=== PATIENT | female | born 1990 | race African-American/Black ===

== ENCOUNTER 2016-05-13 07:37 | Emergency (ER) | payer OTHER, MEDICAID ==
[~2016-05-13] VITALS: Ht 175.3 cm; Wt 60.0 kg
[~2016-05-13 07:37] MED LIST: DOXY100T PO; IRON18TA PO; NAPR550 PO; PREN0.01 PO; SENN1TAB11 PO
[2016-05-13 07:39] VITALS: BP 137/83; PULSE 89; RESP 14; TEMP 98.3; O2SAT 100
--- NOTE | 2016-05-13 08:19 | PD ---
HPI Chief Complaint: Cold / Flu Symptoms Time Seen by Provider: 08:16 Travel History International Travel<30 days: No Contact w/Intl Traveler<30days: No Traveled to known affect area: No History of Present Illness HPI 25-year-old female presents to the emergency department for evaluation of cold symptoms since Thursday. Patient states symptoms are improving, but she needs a note for work. She reports itchy throat, losing her voice, body aches on Thursday that have resolved, cough. She denies any abdominal pain. No nausea, vomiting, diarrhea. She reports no chronic medical problems and taking no prescribed medications. She denies any fevers or chills. She does not use tobacco products. Patient denies any chance of . She denies any other complaints at this time. PFSH Past Medical History ?: Not : 0 Social History Alcohol Use: No Tobacco Use: No Substance Use: No Allergies-Medications (Allergen,Severity, Reaction): Coded Allergies: No Known Allergies (Verified , 06/19/09) Reported Meds & Prescriptions Reported Meds & Active Scripts Active Doxycycline Hyclate 100 Mg Tab 100 Mg PO BID Reported Balbina-Colace (Senna/Docusate Sodium) 1 Tab Tab 2 Tab PO HS Anaprox Ds (Naproxen Sodium) 550 Mg Tab 550 Mg PO BID Ferrous Sulfate 18 Mg Tab 0 PO UNKNOWN DOSE Vit ( Plus) (Prenat Multivit/Smyth/Iron/Folic Ac) Tab 1 Tab PO DAILY Review of Systems Except as stated in HPI: all other systems reviewed are Neg Physical Exam Narrative GENERAL: Well-developed well-nourished female patient, ambulatory. Afebrile. Vital signs are stable. SKIN: Warm and dry. HEAD: Normocephalic. Atraumatic. ENT: Mucosa pink and moist. No erythema or exudates. No uvular edema. No uvular , palatal, or tonsillar deviation. Airway patent. Nasal turbinates appear normal without nasal blood, purulent drainage or septal hematoma. Bilateral tympanic membranes are clear without erythema or perforation. EYES: No scleral icterus. No injection or drainage. NECK: Supple, trachea midline. No JVD or lymphadenopathy. CARDIOVASCULAR: Regular rate and rhythm without murmurs, gallops, or rubs. RESPIRATORY: Breath sounds equal bilaterally. No accessory muscle use. Lungs sounds are clear to auscultation throughout. Dry cough noted. GASTROINTESTINAL: Abdomen soft, non-tender, nondistended. MUSCULOSKELETAL: No cyanosis, or edema. BACK: Nontender without obvious deformity. No CVA tenderness. Data Data Last Documented VS Vital Signs Date Time Temp Pulse Resp B/P Pulse Ox O2 Delivery O2 Flow Rate FiO2 05/13/16 07:39 98.3 89 14 137/83 100 MDM Medical Decision Making Medical Screen Exam Complete: Yes Emergency Medical Condition: No Medical Record Reviewed: Yes Differential Diagnosis Viral URI versus bronchitis versus sinusitis Narrative Course 25-year-old female presents to the emergency department for evaluation of cold symptoms since Thursday, 4 days. Patient appears well and physical exam and states her symptoms are improving, but is requesting a note for work. No emergent condition is identified on today's exam. She is instructed on emergent conditions that she should return immediately for. She verbalizes agreement. A medical screening exam was performed: At the time of evaluation the presenting medical condition was determined not to be of an emergent nature. The patient was given the option of receiving additional care but opted to stay. Patient will be given a note for work as requested. She is to return for any acute worsening of symptoms. She verbalizes agreement and understanding. Diagnosis Primary Impression: Viral upper respiratory tract infection with cough Referrals: Primary Care Physician call for appointment Patient Instructions: General Instructions, Upper Respiratory Infection (ED) Departure Forms: Tests/Procedures, Work Release Enter return to work date: May 14, 2016 Additional Instructions: Rest. Drink plenty of fluids. [id number] Tylenol/ibuprofen as needed. Follow-up with your primary care physician. Return to the emergency department for any acute worsening of symptoms. Med/Other Pt SpecificInfo: No Change to Meds Disposition: 01 DISCHARGE HOME Condition: Stable Regine Griggs May 13, 2016 08:19
== END 2016-05-13 09:08 | disposition home or self-care (01) ==
LOC: NEPB 07:37
DX: J06.9 Acute upper respiratory infection, unspecified (principal)
CPT/HCPCS: 99282

== ENCOUNTER 2016-07-02 21:55 | Emergency (ER) | payer OTHER, MEDICAID ==
[~2016-07-02] VITALS: Ht 175.3 cm; Wt 59.0 kg
[2016-07-02 21:57] VITALS: BP 109/55; PULSE 96; RESP 20; TEMP 99.8; O2SAT 100
[2016-07-02 23:19] VITALS: BP 115/56; PULSE 85; RESP 18; O2SAT 100
--- NOTE | 2016-07-02 23:29 | PD ---
HPI Chief Complaint: Cold / Flu Symptoms Time Seen by Provider: 23:28 Travel History International Travel<30 days: No Contact w/Intl Traveler<30days: No Traveled to known affect area: No History of Present Illness HPI 25-year-old female came to the emergency room with history of vomiting and nausea that started 3 hours ago. Patient says she's been feeling very sick and body aches due to it. She appeared to be in distress. She had her son with her who breast-feeds. Patient was afebrile in the emergency room. No history of diarrhea. Patient says that she vomited about 3-4 times so far. The last vomit was 1 hour ago. She is otherwise a healthy person. [facility] Past Medical History Narrative Medical List of her past medical, surgical, social and family history was reviewed from the nursing note. Anemia: Yes Diminished Hearing: No Tetanus Vaccination: > 5 Years Influenza Vaccination: No ?: Unknown LMP: 06/11/16 : 0 Past Surgical History Section: Yes Social History Alcohol Use: No Tobacco Use: No Substance Use: No Allergies-Medications (Allergen,Severity, Reaction): Coded Allergies: No Known Allergies (Verified , 07/03/16) Comments No known drug allergies. Reported Meds & Prescriptions Reported Meds & Active Scripts Active Ibuprofen 600 Mg Tab 600 Mg PO Q6H PRN Percocet (Oxycodone-Acetaminophen) 5-325 mg Tab 1 Tab PO Q6H PRN Zofran Odt (Ondansetron Odt) 4 Mg Tab 4 Mg SL Q6HR PRN Narrative Medication List of her home medications reviewed from the nursing note. Review of Systems Except as stated in HPI: all other systems reviewed are Neg Physical Exam Narrative GENERAL: Awake, alert, moderate to significant distress SKIN: Focused skin assessment warm/dry. HEAD: Atraumatic. Normocephalic. EYES: Pupils equal and round. No scleral icterus. No injection or drainage. ENT: No nasal bleeding or discharge. Dry mucous membrane NECK: Trachea midline. No JVD. CARDIOVASCULAR: Regular rate and rhythm. No murmur appreciated. RESPIRATORY: No accessory muscle use. Clear to auscultation. Breath sounds equal bilaterally. GASTROINTESTINAL: Abdomen soft, non-tender, nondistended. Hepatic and splenic margins not palpable. MUSCULOSKELETAL: No obvious deformities. No clubbing. No cyanosis. No edema. NEUROLOGICAL: Awake and alert. No obvious cranial nerve deficits. Motor grossly within normal limits. Normal speech. PSYCHIATRIC: Appropriate mood and affect; insight and judgment normal. Data Data Last Documented VS Vital Signs Date Time Temp Pulse Resp B/P Pulse Ox O2 Delivery O2 Flow Rate FiO2 07/02/16 23:19 85 18 115/56 100 Room Air 07/02/16 21:57 99.8 Orders Complete Blood Count With Diff (07/02/16 23:31) Basic Metabolic Panel (Bmp) (07/02/16 23:31) Urinalysis - C+S If Indicated (07/02/16 23:31) Influenzae A/B Antigen (07/02/16 23:31) Blood Culture (07/02/16 23:31) Sodium Chlor 0.9% 1000 Ml Inj (Ns 1000 M (07/02/16 23:45) Acetaminophen (Tylenol) (07/02/16 23:45) Ondansetron Inj (Zofran Inj) (07/02/16 23:45) Ed Urine Pregnancytest Poc (07/02/16 23:31) Sodium Chlor 0.9% 1000 Ml Inj (Ns 1000 M (07/03/16 00:30) Chest, Single Ap (07/03/16 ) Ct Abd/Pel W Iv Contrast(Rout) (07/03/16 ) Iohexol 350 Inj (Omnipaque 350 Inj) (07/03/16 01:24) Mandatory Outpatient Referral (07/03/16 01:48) Labs Laboratory Tests Test 07/02/16 07/02/16 23:40 23:45 Urine Color YELLOW Urine Turbidity CLEAR Urine pH 8.0 Urine Specific Bland 1.027 Urine Protein 30 mg/dL Urine Glucose (UA) NEG mg/dL Urine Ketones 40 mg/dL Urine Occult Blood NEG Urine Nitrite NEG Urine Bilirubin NEG Urine Urobilinogen 4.0 MG/DL Urine Leukocyte Esterase NEG Urine RBC 1 /hpf Urine WBC 2 /hpf Urine Squamous Epithelial 2 /hpf Cells Urine Mucus FEW /lpf Microscopic Urinalysis Comment CULT NOT INDICATED White Blood Count 13.9 TH/MM3 Red Blood Count 4.46 MIL/MM3 Hemoglobin 12.3 GM/DL Hematocrit 37.2 % Mean Corpuscular Volume 83.2 FL Mean Corpuscular Hemoglobin 27.5 PG Mean Corpuscular Hemoglobin 33.1 % Concent Red Cell Distribution Width 13.7 % Platelet Count 249 TH/MM3 Mean Platelet Volume 9.3 FL Neutrophils (%) (Auto) 87.2 % Lymphocytes (%) (Auto) 5.2 % Monocytes (%) (Auto) 7.3 % Eosinophils (%) (Auto) 0.1 % Basophils (%) (Auto) 0.2 % Neutrophils # (Auto) 12.1 TH/MM3 Lymphocytes # (Auto) 0.7 TH/MM3 Monocytes # (Auto) 1.0 TH/MM3 Eosinophils # (Auto) 0.0 TH/MM3 Basophils # (Auto) 0.0 TH/MM3 CBC Comment AUTO DIFF Differential Comment AUTO DIFF CONFIRMED Sodium Level 140 MEQ/L Potassium Level 3.5 MEQ/L Chloride Level 104 MEQ/L Carbon Dioxide Level 28.1 MEQ/L Anion Gap 8 MEQ/L Blood Urea Nitrogen 10 MG/DL Creatinine 0.91 MG/DL Estimat Glomerular Filtration 90 ML/MIN Rate Random Glucose 114 MG/DL Calcium Level 8.9 MG/DL MDM Medical Decision Making Medical Screen Exam Complete: Yes Emergency Medical Condition: Yes Medical Record Reviewed: Yes Differential Diagnosis UTI, influenza, viral illness, pneumonia Narrative Course 1:29 AM blood test results of back and patient has some leukocytosis. I gave her -2 liters of fluid bolus because urine was positive for ketones. Chest x- ray was negative and influenza was negative. I went back to reassess her and she says she was feeling little better. I palpated her abdomen again this time and patient has right lower quadrant tenderness. I have ordered a CT scan of her abdomen to rule out appendicitis. My suspicion is somewhat high at this point for appendicitis since I have not found any other source of her symptoms. Awaiting for the CAT scan to be done and resulted. 1:[address] scan report is back and shows a large right simple ovarian cyst. Appendix was documented as unremarkable. Based on this and comfortable discharging her home. I have ordered a mandatory referral with SPECIAL SYSTEMS TECHNICIAN for for her which can be done as an outpatient. Procedures EKG Prior to Arrival: No Diagnosis Primary Impression: Viral illness Additional Impressions: Dehydration Vomiting Qualified Code: R11.2 - Non-intractable vomiting with nausea, unspecified vomiting type Ovarian cyst Qualified Code: N83.201 - Cyst of right ovary Referrals: Leatha Ambrocio MD 2 days Additional Instructions: The CAT scan showed a large ovarian cyst. He should follow-up with SPECIAL SYSTEMS TECHNICIAN. The name and number of her SPECIAL SYSTEMS TECHNICIAN has been recommended to you in this discharge instructions. There has also been a mandatory referral asked for. Please follow-up with him. Return to the ER if the condition worsens or any other new concerns. Take the medication for the nausea as needed as per the prescription direction. Drink Plenty of fluid and try to keep himself hydrated. Med/Other Pt SpecificInfo: Prescription(s) given Scripts Ondansetron Odt (Zofran Odt)4 Mg Tab4 Mg SL Q6HR PRN (Nausea/Vomiting) #10 TAB Ref 0 Prov:Nancy Faustin MD 07/03/16 Disposition: 01 DISCHARGE HOME Condition: Stable Nancy Faustin MD Jul 02, 2016 23:28
[2016-07-02] MEDS ORDERED: SODIUM CHLOR 0.9% 1000 ML INJ 1,000 ML IV ONE (23:45)
[2016-07-02] MEDS ORDERED: ACETAMINOPHEN 325 MG TAB PO ONE (23:45)
[2016-07-02] MEDS ORDERED: ONDANSETRON HCL 4 MG/2 ML VIAL IV PUSH ONE (23:45)
[2016-07-03 00:02] LABS: AUTOMATED NEUTROPHIL # 12.1 TH/MM3 (1.8-7.7); BASOPHIL % 0.2 % (0.0-2.0); EOSINOPHIL % 0.1 % (0.0-4.0); HEMATOCRIT 37.2 % (35.0-46.0); LYMPH % 5.2 % (9.0-44.0); LYMPHOCYTE # 0.7 TH/MM3 (1.0-4.8); MEAN CELL VOLUME 83.2 FL (80.0-100.0); MEAN CORPUSCULAR HEMOGLOBIN 27.5 PG (27.0-34.0); MEAN CORPUSCULAR HGB CONC 33.1 % (32.0-36.0); MONO % 7.3 % (0.0-8.0); NEUT % 87.2 % (16.0-70.0); PLATELET COUNT 249 TH/MM3 (150-450); RED BLOOD COUNT 4.46 MIL/MM3 (4.00-5.30); RED CELL DISTRIBUTION WIDTH 13.7 % (11.6-17.2); WHITE BLOOD COUNT 13.9 TH/MM3 (4.0-11.0)
[2016-07-03 00:03] LABS: HEMO FLAGS AUTO DIFF
[2016-07-03 00:12] LABS: BLOOD, URINE NEG (NEG); COMMENT (UR) CULT NOT INDICATED; CULTURE IF INDICATED CULT NOT INDICATED; GLUCOSE,URINE NEG (NEG); KETONE, URINE 40 mg/dL (NEG); MUCUS URINE FEW /lpf (OCC); NITRITE,URINE NEG (NEG); SQUAMOUS EPITHELIAL CELL URINE 2 /hpf (0-5); URINE COLOR YELLOW (YELLW/STRAW)
[2016-07-03 00:26] LABS: BICARBONATE 28.1 MEQ/L (21.0-32.0); POTASSIUM 3.5 MEQ/L (3.5-5.1)
[2016-07-03] MEDS ORDERED: SODIUM CHLOR 0.9% 1000 ML INJ 1,000 ML IV ONE (00:30)
--- NOTE | 2016-07-03 01:01 | RADRPT ---
EXAM DATE/TIME: 07/03/2016 00:46 [facility] COMPARISON: No previous studies available for comparison. INDICATIONS : Fever. Weakness and vomiting. MEDICAL HISTORY : None. SURGICAL HISTORY : None. ENCOUNTER: Initial ACUITY: 1 day PAIN SCORE: 2/10 LOCATION: Bilateral chest FINDINGS: A single view of the chest demonstrates the lungs to be symmetrically aerated without evidence of mas s, infiltrate or effusion. The cardiomediastinal contours are unremarkable. Osseous structures are intact. CONCLUSION: Normal examination for a patient of this age. Austin Colmenares MD on July 03, 2016 at 1:00 Board Certified Radiologist. This report was verified electronically.
[2016-07-03] MEDS ORDERED: IOHEXOL 350 MG/ML 10 ML VIAL (for RAD DIAG) IV ONE (01:24)
[2016-07-03 01:31] LABS: SCAN/DIFF AUTO DIFF CONFIRMED
--- NOTE | 2016-07-03 01:42 | RADRPT ---
EXAM DATE/TIME: 07/03/2016 01:22 [facility] COMPARISON: No previous studies available for comparison. INDICATIONS : Abdomen pain with nausea and vomiting. IV CONTRAST: 80 cc Omnipaque 350 (iohexol) IV ORAL CONTRAST: No oral contrast ingested. RADIATION DOSE: 4.66 CTDIvol (mGy) MEDICAL HISTORY : None SURGICAL HISTORY : section. ENCOUNTER: Initial ACUITY: 1 day PAIN SCALE: 6/10 LOCATION: abdomen TECHNIQUE: Volumetric scanning of the abdomen and pelvis was performed. Using automated exposure control and ad justment of the mA and/or kV according to patient size, radiation dose was kept as low as reasonably achievable to obtain optimal diagnostic quality images. FINDINGS: LOWER LUNGS: The visualized lower lungs are clear. LIVER: Homogeneous density without lesion. There is no dilation of the biliary tree. No calcified gallston es. SPLEEN: Normal size without lesion. PANCREAS: Within normal limits. KIDNEYS: Normal in size and shape. There is no mass, stone or hydronephrosis. ADRENAL GLANDS: Within normal limits. VASCULAR: There is no aortic aneurysm. BOWEL/MESENTERY: The stomach, small bowel, and colon demonstrate no acute abnormality. There is no free intraperitone al air or fluid. The appendix is unremarkable. No inflammatory changes are seen. There is stool throu ghout the colon. ABDOMINAL WALL: There is an umbilical hernia containing a loop of small bowel. There is no evidence of obstruction. RETROPERITONEUM: There is no lymphadenopathy. BLADDER: No wall thickening or mass. REPRODUCTIVE: There is a 1.7 cm calcified mass in the anterior fundus characteristic of a calcified uterine fibroid . There is a prominent right adnexal cyst measuring 6.0 x 4.5 cm. This is most likely a large right o varian cyst. No definite free fluid is seen. The uterus is within normal limits for size. INGUINAL: There is no lymphadenopathy or hernia. MUSCULOSKELETAL: Within normal limits for patient age. CONCLUSION: 1. Large well-defined right ovarian cyst measuring 6.0 x 4.5 cm. 2. 1.7 cm calcified uterine fibroid in the anterior fundus. 3. Small umbilical hernia containing a loop of small bowel without obstruction. Austin Colmenares MD on July 03, 2016 at 1:36 Board Certified Radiologist. This report was verified electronically.
[2016-07-03] MEDS ORDERED: ZOFR4TAB3 SL (01:52)
[2016-07-04] MEDS ORDERED: IBUP-232 PO (00:11)
[2016-07-04] MEDS ORDERED: PERC5TAB12 PO (00:11)
== END 2016-07-03 02:19 | disposition home or self-care (01) ==
LOC: NEPE 21:55
DX: B34.9 Viral infection, unspecified (principal); E86.0 Dehydration; R11.2 Nausea with vomiting, unspecified; N83.201 Unspecified ovarian cyst, right side; M79.1 Myalgia; Z86.2 Personal history of diseases of the blood and blood-forming organs and certain disorders involving the immune mechanism
CPT/HCPCS: 71010; 74177; 80048; 81001; 84703; 85025; 87040; 87804; 96361; 96374; 99284; J2405; J7030; Q9967

== ENCOUNTER 2016-07-03 16:11 | Emergency (ER) | payer OTHER ==
[~2016-07-03] VITALS: Ht 175.3 cm; Wt 59.0 kg
[~2016-07-03 16:11] MED LIST changes: -DOXY100T PO; -IRON18TA PO; -NAPR550 PO; -PREN0.01 PO; -SENN1TAB11 PO; +ZOFR4TAB3 SL
[2016-07-03 16:14] VITALS: BP 114/62; PULSE 70; RESP 24; TEMP 97.9; O2SAT 100
[2016-07-03] MEDS ORDERED: SODIUM CHLOR 0.9% 1000 ML INJ 1,000 ML IV ONE (17:29)
[2016-07-03] MEDS ORDERED: ONDANSETRON HCL 4 MG/2 ML VIAL IV PUSH ONE (17:30)
--- NOTE | 2016-07-03 17:37 | PD ---
HPI Chief Complaint: Abdominal Pain Time Seen by Provider: 17:10 Travel History International Travel<30 days: No Contact w/Intl Traveler<30days: No Traveled to known affect area: No History of Present Illness HPI Patient's 25-year-old female presenting to emergency for evaluation of right pelvic pain. Patient states her pain is a 10 out of 10, his exam progressively worse throughout the course the day. She's taken Tylenol and ibuprofen throughout the day with no relief of her symptoms. Patient states she was here last night for the same pain and was told she has an ovarian cyst. Nausea or vomiting, fever, chills, headache or shortness of breath. She reports the pain is aching and throbbing. She denies any dysuria, vaginal bleeding or discharge. PFSH Past Medical History Anemia: Yes Diminished Hearing: No ?: Not LMP: 06/09/16 : 0 Past Surgical History Section: Yes Social History Alcohol Use: No Tobacco Use: No Substance Use: No Allergies-Medications (Allergen,Severity, Reaction): Coded Allergies: No Known Allergies (Verified , 07/03/16) Reported Meds & Prescriptions Reported Meds & Active Scripts Active Ibuprofen 600 Mg Tab 600 Mg PO Q6H PRN Percocet (Oxycodone-Acetaminophen) 5-325 mg Tab 1 Tab PO Q6H PRN Zofran Odt (Ondansetron Odt) 4 Mg Tab 4 Mg SL Q6HR PRN Review of Systems Except as stated in HPI: all other systems reviewed are Neg Gastrointestinal: Positive: Abdominal Pain Genitourinary: Positive: Pelvic Pain Physical Exam Narrative GENERAL: Thin, well-developed, alert female. Appears uncomfortable, in no acute distress. SKIN: Focused skin assessment warm/dry. HEAD: Atraumatic. Normocephalic. EYES: Pupils equal and round. No scleral icterus. No injection or drainage. ENT: No nasal bleeding or discharge. Mucous membranes pink and moist. NECK: Trachea midline. No JVD. CARDIOVASCULAR: Regular rate and rhythm. No murmur appreciated. RESPIRATORY: No accessory muscle use. Clear to auscultation. Breath sounds equal bilaterally. GASTROINTESTINAL: Abdomen soft, significantly tender to palpation in right lower quadrant/right pelvis. Positive guarding, no rebound, positive bowel sounds. MUSCULOSKELETAL: No obvious deformities. No clubbing. No cyanosis. No edema. NEUROLOGICAL: Awake and alert. No obvious cranial nerve deficits. Motor grossly within normal limits. Normal speech. PSYCHIATRIC: Appropriate mood and affect; insight and judgment normal. GENITOURINARY: No dysuria, no frequency, white vaginal discharge no bleeding. Right adnexa is significantly tender to palpation and enlarged, no cervical motion tenderness on exam Data Data Last Documented VS Vital Signs Date Time Temp Pulse Resp B/P Pulse Ox O2 Delivery O2 Flow Rate FiO2 07/04/16 00:47 74 17 116/64 100 07/03/16 19:37 Room Air 07/03/16 16:14 97.9 Orders Complete Blood Count With Diff (07/03/16 17:29) Basic Metabolic Panel (Bmp) (07/03/16 17:29) Iv Access Insert/Monitor (07/03/16 17:29) Sodium Chlor 0.9% 1000 Ml Inj (Ns 1000 M (07/03/16 17:29) Ondansetron Inj (Zofran Inj) (07/03/16 17:30) Morphine Inj (Morphine Inj) (07/03/16 17:45) Morphine Inj (Morphine Inj) (07/03/16 19:30) Us Pelvis Comp W Doppler (07/03/16 ) Wet Prep Profile (07/03/16 20:06) Beta Hcg (Quant/Titer) (07/03/16 20:59) Oxycodone-Acetamin 5-325 Mg (Percocet (07/04/16 00:45) Labs Laboratory Tests Test 07/03/16 07/03/16 17:47 20:05 White Blood Count 12.8 TH/MM3 Red Blood Count 3.97 MIL/MM3 Hemoglobin 10.3 GM/DL Hematocrit 33.5 % Mean Corpuscular Volume 84.3 FL Mean Corpuscular Hemoglobin 26.0 PG Mean Corpuscular Hemoglobin 30.9 % Concent Red Cell Distribution Width 13.7 % Platelet Count 231 TH/MM3 Mean Platelet Volume 9.5 FL Neutrophils (%) (Auto) 71.3 % Lymphocytes (%) (Auto) 21.0 % Monocytes (%) (Auto) 6.2 % Eosinophils (%) (Auto) 1.0 % Basophils (%) (Auto) 0.5 % Neutrophils # (Auto) 9.1 TH/MM3 Lymphocytes # (Auto) 2.7 TH/MM3 Monocytes # (Auto) 0.8 TH/MM3 Eosinophils # (Auto) 0.1 TH/MM3 Basophils # (Auto) 0.1 TH/MM3 CBC Comment DIFF FINAL Differential Comment Sodium Level 142 MEQ/L Potassium Level 3.5 MEQ/L Chloride Level 106 MEQ/L Carbon Dioxide Level 26.2 MEQ/L Anion Gap 10 MEQ/L Blood Urea Nitrogen 7 MG/DL Creatinine 0.75 MG/DL Estimat Glomerular Filtration 112 ML/MIN Rate Random Glucose 84 MG/DL Calcium Level 8.8 MG/DL Human Chorionic Gonadotropin, LESS THAN 1 Quant MIU/ML Clue Cells (Wet Prep) NONE SEEN Vaginal Trichomonas (Wet Prep) NONE SEEN Vaginal Yeast (Wet Prep) NONE SEEN MDM Medical Decision Making Medical Screen Exam Complete: Yes Emergency Medical Condition: Yes Interpretation(s) Last Impressions Pelvis Ultrasound 07/03/16 0000 Signed Impressions: Service Date/Time: June 18:51 - CONCLUSION: Uterine fibroid, large right ovarian cyst and small left ovarian cyst. Repeat pelvic ultrasound is suggested in 6 months. Buffy Varghese MD Laboratory Tests Test 07/03/16 17:47 White Blood Count 12.8 TH/MM3 Red Blood Count 3.97 MIL/MM3 Hemoglobin 10.3 GM/DL Hematocrit 33.5 % Mean Corpuscular Volume 84.3 FL Mean Corpuscular Hemoglobin 26.0 PG Mean Corpuscular Hemoglobin 30.9 % Concent Red Cell Distribution Width 13.7 % Platelet Count 231 TH/MM3 Mean Platelet Volume 9.5 FL Neutrophils (%) (Auto) 71.3 % Lymphocytes (%) (Auto) 21.0 % Monocytes (%) (Auto) 6.2 % Eosinophils (%) (Auto) 1.0 % Basophils (%) (Auto) 0.5 % Neutrophils # (Auto) 9.1 TH/MM3 Lymphocytes # (Auto) 2.7 TH/MM3 Monocytes # (Auto) 0.8 TH/MM3 Eosinophils # (Auto) 0.1 TH/MM3 Basophils # (Auto) 0.1 TH/MM3 CBC Comment DIFF FINAL Differential Comment Sodium Level 142 MEQ/L Potassium Level 3.5 MEQ/L Chloride Level 106 MEQ/L Carbon Dioxide Level 26.2 MEQ/L Anion Gap 10 MEQ/L Blood Urea Nitrogen 7 MG/DL Creatinine 0.75 MG/DL Estimat Glomerular Filtration 112 ML/MIN Rate Random Glucose 84 MG/DL Calcium Level 8.8 MG/DL Vital Signs Date Time Temp Pulse Resp B/P Pulse Ox O2 Delivery O2 Flow Rate FiO2 07/03/16 16:14 97.9 70 24 114/62 100 Room Air Differential Diagnosis Ovarian cyst versus ruptured ovarian cyst versus ovarian torsion versus peritonitis versus other Narrative Course Patient is a 25-year-old female presenting to the emergency department due to right pelvic pain. Patient was diagnosed last night/early this morning with a right ovarian cyst that measures 6 cm x 4.5 cm. Patient reports that the pain is getting increasingly worse throughout the course of the day. Labs and imaging ordered and pending. Patient given pain medication per my attending physician. Chemistries unremarkable CBC shows WBC 12.8, hemoglobin 10.3/3.5 which is changed from 07/02/16 at 2345 at that time was 12.3/37.2, it could be dilutional or as result of a hemorrhage. Ultrasound of the pelvis ordered and pending pelvic ultrasound shows a large right ovarian cyst, uterine fibroid, pelvic ultrasound should be repeated in 6 months. We would like to admit patient to OB hospitalist, discussed with Dr. Romero who stated that she would need to evaluate the patient before patient could be admitted. Care of pt transferred to my attending at the end of my shift, awaiting OB hospitalist. Scripts Ibuprofen 600 Mg Qch438 Mg PO Q6H PRN (Pain/Inflammation) #40 TAB Ref 0 Prov:Janie Lopez DO 07/04/16 Oxycodone-Acetaminophen (Percocet)5-325 mg Tab1 Tab PO Q6H PRN (PAIN) #7 TAB Ref 0 Prov:Janie Lopez DO 07/04/16 Fior Barbour Jul 03, 2016 17:37
[2016-07-03] MEDS ORDERED: MORPHINE SULFATE 4 MG/ML INJ IV PUSH ONE ×2 (17:45→19:30)
[2016-07-03 18:11] LABS: AUTOMATED NEUTROPHIL # 9.1 TH/MM3 (1.8-7.7); BASOPHIL # 0.1 TH/MM3 (0-0.2); BASOPHIL % 0.5 % (0.0-2.0); EOSINOPHIL # 0.1 TH/MM3 (0-0.4); HEMATOCRIT 33.5 % (35.0-46.0); HEMO FLAGS DIFF FINAL; LYMPHOCYTE # 2.7 TH/MM3 (1.0-4.8); MEAN CELL VOLUME 84.3 FL (80.0-100.0); MEAN CORPUSCULAR HGB CONC 30.9 % (32.0-36.0); MONO % 6.2 % (0.0-8.0); NEUT % 71.3 % (16.0-70.0); PLATELET COUNT 231 TH/MM3 (150-450); RED BLOOD COUNT 3.97 MIL/MM3 (4.00-5.30); RED CELL DISTRIBUTION WIDTH 13.7 % (11.6-17.2); WHITE BLOOD COUNT 12.8 TH/MM3 (4.0-11.0)
[2016-07-03 18:25] LABS: BICARBONATE 26.2 MEQ/L (21.0-32.0); POTASSIUM 3.5 MEQ/L (3.5-5.1)
[2016-07-03 18:54] VITALS: BP 116/66; PULSE 61; RESP 16; O2SAT 99
[2016-07-03 19:37] VITALS: BP 116/65; PULSE 67; RESP 14; O2SAT 98
--- NOTE | 2016-07-03 19:55 | RADRPT ---
EXAM DATE/TIME: 07/03/2016 18:51 [facility] COMPARISON: CT ABDOMEN & PELVIS W CONTRAST, July 03, 2016, 1:22. INDICATIONS : Pelvic pain. MEDICAL HISTORY : Anemia. SURGICAL HISTORY : section. ENCOUNTER: Initial ACUITY: 1 day PAIN SCORE: 10/10 LOCATION: Bilateral pelvis MEASUREMENTS: UTERUS: 11.6 x 6.7 x 6.3 cm ENDOMETRIAL STRIPE: 3 mm RIGHT OVARY: 7.4 x 6.7 x 5.3 cm LEFT OVARY: 4.8 x 2.0 x 2.3 cm FINDINGS: Approximately 1.8 cm calcified fibroid is present. There is an approximate 6.7 cm cyst in the right o vary with an approximate 1.6 cm cyst in the left ovary. Blood flow is visualized in both ovaries. The re is no free fluid. CONCLUSION: Uterine fibroid, large right ovarian cyst and small left ovarian cyst. Repeat pelvic ultrasound is rice ggested in 6 months. Buffy Varghese MD on July 03, 2016 at 19:50 Board Certified Radiologist. This report was verified electronically.
--- NOTE | 2016-07-03 21:19 | HHI.HP ---
[facility] Service Family Medicine Primary Care Physician No Primary Care Physician Admission Diagnosis Diagnoses: International Travel<30 Days: No Contact w/Intl Traveler<30days: No Known Affected Area: No History of Present Illness Patient is a 25 year old female presented to the ED due to right pelvic pain. Patient was seen here in the ED last night and found to have a large right well- defined ovarian cyst that measures 6 cm x 4.5 cm along with a 1.7 cm calcified uterine fibroid in the anterior fundus. She had presented last night initially with nausea and vomiting of 3 hours duration along with feeling very ill and body aches. She was afebrile at that time. She was negative for influenza and her blood cultures are now negative after one day. She did not present with abdominal or pelvic pain, however the ED physician reexamined the patient and she was found to have right lower abdominal pain which prompted the abdomen/ pelvis CT. Patient now reports that her pain has been progressively worsening throughout the course of the day today. She states she felt ok when she woke up this morning and went to work. At about 09:00 this morning she noticed right lower abdominal / pelvic pain that lasted for about 20-30 minutes. The pain then subsided for about 15 minutes and occurred again for another 20-30 minutes. She reports intermittent pain like this throughout today. Currently after receiving morphine in the ED she states her pain is at a 3/10. She denies fevers, no nausea or vomiting today. She denies any previous episodes of abdominal or pelvic pain. She was last sexually active with her boyfriend about a week and a half ago. Denies trauma to her pelvis. Denies vaginal bleeding. She does report a milky white vaginal discharge. She denies any urinary symptoms. Review of Systems Constitutional: DENIES: Fever, Chills, Change in appetite, Night Sweats Endocrine: DENIES: Abnorml menstrual pattern Respiratory: DENIES: Cough, Wheezing, Shortness of breath Cardiovascular: DENIES: Chest pain, Palpitations Gastrointestinal: DENIES: Constipation, Diarrhea, Nausea, Vomiting Genitourinary: DENIES: Abnormal vaginal bleeding, Hematuria, Dysuria Past Family Social History Past Medical History Iron deficiency anemia Past Surgical History section x 1 Reported Medications Reported Meds & Active Scripts Active Zofran Odt (Ondansetron Odt) 4 Mg Tab 4 Mg SL Q6HR PRN Allergies: Coded Allergies: No Known Allergies (Verified , 07/03/16) Family History Patient denies known family history of uterine fibroids, uterine or ovarian or breast cancer Mother is 54 years of age, reportedly healthy Father is 75 years of age, reportedly healthy Social History Denies cigarette use, etoh intake Admits to smoking marijuana about a month and a half ago Lives with boyfriend Sexually active with her boyfriend last time of intercourse was about a week and a half ago Physical Exam Vital Signs Vital Signs Date Time Temp Pulse Resp B/P Pulse Ox O2 Delivery O2 Flow Rate FiO2 07/03/16 19:37 67 14 116/65 98 Room Air 07/03/16 18:54 61 16 116/66 99 Room Air 07/03/16 16:14 97.9 70 24 114/62 100 Room Air Physical Exam GENERAL: NAD, resting comfortably in bed NEURO: AOx3. Normal speech. head trimmer grossly intact. Motor grossly normal. SKIN: Warm and dry. No rashes or erythema. HEAD: Normocephalic. Atraumatic. EYES: PERRL. EOMI. No scleral icterus. No injection or drainage. ENT: No nasal drainage. Moist mucous membranes. No oral ulcers or lesions. NECK: Supple, trachea midline. No JVD or lymphadenopathy. CARDIOVASCULAR: Regular rate and rhythm without murmurs, rubs, or gallops. Peripheral pulses 2+. Capillary refill < 2 seconds. RESPIRATORY: Breath sounds clear to auscultation and equal bilaterally, without wheezes, rales, or rhonchi. No accessory muscle use. GASTROINTESTINAL: Abdomen soft, nontender, nondistended, normal BS. No organomegaly or masses. No rebound tenderness. No guarding. MUSCULOSKELETAL: No edema, cyanosis, or clubbing. Normal range of motion. BACK: Nontender without obvious deformity. Laboratory Laboratory Tests Test 07/03/16 07/03/16 17:47 20:05 White Blood Count 12.8 Red Blood Count 3.97 Hemoglobin 10.3 Hematocrit 33.5 Mean Corpuscular Volume 84.3 Mean Corpuscular Hemoglobin 26.0 Mean Corpuscular Hemoglobin 30.9 Concent Red Cell Distribution Width 13.7 Platelet Count 231 Mean Platelet Volume 9.5 Neutrophils (%) (Auto) 71.3 Lymphocytes (%) (Auto) 21.0 Monocytes (%) (Auto) 6.2 Eosinophils (%) (Auto) 1.0 Basophils (%) (Auto) 0.5 Neutrophils # (Auto) 9.1 Lymphocytes # (Auto) 2.7 Monocytes # (Auto) 0.8 Eosinophils # (Auto) 0.1 Basophils # (Auto) 0.1 CBC Comment DIFF FINAL Differential Comment Sodium Level 142 Potassium Level 3.5 Chloride Level 106 Carbon Dioxide Level 26.2 Anion Gap 10 Blood Urea Nitrogen 7 Creatinine 0.75 Estimat Glomerular Filtration 112 Rate Random Glucose 84 Calcium Level 8.8 Clue Cells (Wet Prep) NONE SEEN Vaginal Trichomonas (Wet Prep) NONE SEEN Vaginal Yeast (Wet Prep) NONE SEEN Result Diagram: 07/03/16174607/03/161746 Septic Shock Reassessment Heart: Regular rate and rhythm Lungs: Clear Skin: Cold, Dry Peripheral Pulses: Bounding Right Radial Bounding Left Radial Bounding Right Dorsalis Pedis Bounding Left Dorsalis Pedis Bounding Right Posterior Tibial Bounding Left Posterior Tibial Capillary Refill: <2 seconds Assessment and Plan Assessment and Plan Patient is a 25 year old female presented to the ED due to worsening intermittent right pelvic pain throughout today. Pelvic ultrasound found a large right ovarian cyst and small left ovarian cyst. Discussed Condition With Dr. Nick Lopez Problem List: (1) Ovarian cyst Status: Acute (2) Pelvic pain Status: Acute Physician Certification Order for Inpatient Services The services are ordered in accordance with Medicare regulations or non- Medicare payer requirements, as applicable. In the case of services not specified as inpatient-only, they are appropriately provided as inpatient services in accordance with the 2-midnight benchmark. days is the estimated time the patient will need to remain in the hospital, assuming treatment plan goals are met and no additional complications. Gómez Carlos MD R1 Jul 03, 2016 21:19
[2016-07-03 21:41] LABS: BETA HCG QUANT LESS THAN 1 MIU/ML (0-5)
--- NOTE | 2016-07-03 22:51 | PD ---
Data Data Last Documented VS Vital Signs Date Time Temp Pulse Resp B/P Pulse Ox O2 Delivery O2 Flow Rate FiO2 07/03/16 19:37 67 14 116/65 98 Room Air 07/03/16 16:14 97.9 Orders Complete Blood Count With Diff (07/03/16 17:29) Basic Metabolic Panel (Bmp) (07/03/16 17:29) Iv Access Insert/Monitor (07/03/16 17:29) Sodium Chlor 0.9% 1000 Ml Inj (Ns 1000 M (07/03/16 17:29) Ondansetron Inj (Zofran Inj) (07/03/16 17:30) Morphine Inj (Morphine Inj) (07/03/16 17:45) Morphine Inj (Morphine Inj) (07/03/16 19:30) Us Pelvis Comp W Doppler (07/03/16 ) Wet Prep Profile (07/03/16 20:06) Beta Hcg (Quant/Titer) (07/03/16 20:59) Labs Laboratory Tests Test 07/03/16 07/03/16 17:47 20:05 White Blood Count 12.8 TH/MM3 Red Blood Count 3.97 MIL/MM3 Hemoglobin 10.3 GM/DL Hematocrit 33.5 % Mean Corpuscular Volume 84.3 FL Mean Corpuscular Hemoglobin 26.0 PG Mean Corpuscular Hemoglobin 30.9 % Concent Red Cell Distribution Width 13.7 % Platelet Count 231 TH/MM3 Mean Platelet Volume 9.5 FL Neutrophils (%) (Auto) 71.3 % Lymphocytes (%) (Auto) 21.0 % Monocytes (%) (Auto) 6.2 % Eosinophils (%) (Auto) 1.0 % Basophils (%) (Auto) 0.5 % Neutrophils # (Auto) 9.1 TH/MM3 Lymphocytes # (Auto) 2.7 TH/MM3 Monocytes # (Auto) 0.8 TH/MM3 Eosinophils # (Auto) 0.1 TH/MM3 Basophils # (Auto) 0.1 TH/MM3 CBC Comment DIFF FINAL Differential Comment Sodium Level 142 MEQ/L Potassium Level 3.5 MEQ/L Chloride Level 106 MEQ/L Carbon Dioxide Level 26.2 MEQ/L Anion Gap 10 MEQ/L Blood Urea Nitrogen 7 MG/DL Creatinine 0.75 MG/DL Estimat Glomerular Filtration 112 ML/MIN Rate Random Glucose 84 MG/DL Calcium Level 8.8 MG/DL Human Chorionic Gonadotropin, LESS THAN 1 Quant MIU/ML Clue Cells (Wet Prep) NONE SEEN Vaginal Trichomonas (Wet Prep) NONE SEEN Vaginal Yeast (Wet Prep) NONE SEEN MDM Medical Record Reviewed: Yes Supervised Visit with TINO: Yes Interpretation(s) Vital Signs Date Time Temp Pulse Resp B/P Pulse Ox O2 Delivery O2 Flow Rate FiO2 07/03/16 19:37 67 14 116/65 98 Room Air 07/03/16 18:54 61 16 116/66 99 Room Air 07/03/16 16:14 97.9 70 24 114/62 100 Room Air Last Impressions Pelvis Ultrasound 07/03/16 0000 Signed Impressions: Service Date/Time: June 18:51 - CONCLUSION: Uterine fibroid, large right ovarian cyst and small left ovarian cyst. Repeat pelvic ultrasound is suggested in 6 months. Buffy Varghese MD Laboratory Tests Test 07/03/16 07/03/16 17:47 20:05 White Blood Count 12.8 TH/MM3 (4.0-11.0) Red Blood Count 3.97 MIL/MM3 (4.00-5.30) Hemoglobin 10.3 GM/DL (11.6-15.3) Hematocrit 33.5 % (35.0-46.0) Mean Corpuscular Volume 84.3 FL (80.0-100.0) Mean Corpuscular Hemoglobin 26.0 PG (27.0-34.0) Mean Corpuscular Hemoglobin 30.9 % Concent (32.0-36.0) Red Cell Distribution Width 13.7 % (11.6-17.2) Platelet Count 231 TH/MM3 (150-450) Mean Platelet Volume 9.5 FL (7.0-11.0) Neutrophils (%) (Auto) 71.3 % (16.0-70.0) Lymphocytes (%) (Auto) 21.0 % (9.0-44.0) Monocytes (%) (Auto) 6.2 % (0.0-8.0) Eosinophils (%) (Auto) 1.0 % (0.0-4.0) Basophils (%) (Auto) 0.5 % (0.0-2.0) Neutrophils # (Auto) 9.1 TH/MM3 (1.8-7.7) Lymphocytes # (Auto) 2.7 TH/MM3 (1.0-4.8) Monocytes # (Auto) 0.8 TH/MM3 (0-0.9) Eosinophils # (Auto) 0.1 TH/MM3 (0-0.4) Basophils # (Auto) 0.1 TH/MM3 (0-0.2) CBC Comment DIFF FINAL Differential Comment Sodium Level 142 MEQ/L (136-145) Potassium Level 3.5 MEQ/L (3.5-5.1) Chloride Level 106 MEQ/L (98-107) Carbon Dioxide Level 26.2 MEQ/L (21.0-32.0) Anion Gap 10 MEQ/L (5-15) Blood Urea Nitrogen 7 MG/DL (7-18) Creatinine 0.75 MG/DL (0.50-1.00) Estimat Glomerular Filtration 112 ML/MIN Rate (>89) Random Glucose 84 MG/DL (74-106) Calcium Level 8.8 MG/DL (8.5-10.1) Human Chorionic Gonadotropin, LESS THAN 1 Quant MIU/ML (0-5) Clue Cells (Wet Prep) NONE SEEN (NONE) Vaginal Trichomonas (Wet Prep) NONE SEEN (NONE) Vaginal Yeast (Wet Prep) NONE SEEN (NONE) Narrative Course I, Dr. Lopez, have reviewed the advance practice practitioner's documentation and am in agreement, met with the patient face to face, made the diagnosis, and the medical decision making was done by me. *My assessment and Findings: RLQ abdominal pain with 6.7cm right sided ovarian cyst. On pelvic ultrasound, blood flow is visualized in both ovaries. Patient is a 25-year-old female who presents to emergency room with complaints of right lower quadrant abdominal pain. Patient was seen in the ER earlier today and had a CT of abdomen and pelvis which showed of right-sided ovarian cyst. Patient returns to emergency room as she has been having intermittent right lower quadrant abdominal pain throughout the day. Pelvic us was obtained , given patients intermittent pain, discussed case with AIRFRAME AND POWERPLANT TECHNICIAN attending, Dr. Romero. There was concern for possible intermittent ovarian torsion given her 6.7 cm ovarian cyst. Plan to obs for serial abdominal evaluations. Patient was seen by FP resident who reviewed case with Dr. Romero, it was felt that patient could be obs to medicine service, with automatic mounter as inside sales consultant. Dr Javier refuses admission as this is an automatic mounter case and requires no medical intervention. Call made to Dr. Romero who will see patient in ER and decide whether patient requires admission to the hospital or can be safely sent home with out patient follow up Dr. Romero evaluated patient in ER. Patient can safely be discharged to home with outpatient follow up with a few percocet tabs for pain. Signs and symptoms of when to return to the emergency room was reviewed with patient in detail. Diagnosis Primary Impression: Ovarian cyst Additional Impression: Pelvic pain Referrals: Carmelo Machado MD Patient Instructions: General Instructions, Narcotic given in the ED Additional Instruction: Please provide patient with a copy of her lab work and studies at discharge Please call AIRFRAME AND POWERPLANT TECHNICIAN first thing in the morning for earliest follow-up Return to the emergency room if symptoms worsen or progress Return to the emergency room as needed Med/Other Pt SpecificInfo: Prescription(s) given Scripts Ibuprofen 600 Mg [id number] Mg PO Q6H PRN (Pain/Inflammation) #40 TAB Ref 0 Prov:Janie Lopez DO 07/04/16 Oxycodone-Acetaminophen (Percocet)5-325 mg Tab1 Tab PO Q6H PRN (PAIN) #7 TAB Ref 0 Prov:Janie Lopez DO 07/04/16 Disposition: 01 DISCHARGE HOME Condition: Stable Janie Lopez DO Jul 03, 2016 22:51
--- NOTE | 2016-07-03 23:29 | PD.CONS ---
HPI Chief Complaint Pelvic pain Date Seen: Jul 03, 2016 (Gómez Carlos MD R1) Travel History International Travel<30 Days: No Contact w/Intl Traveler<30Days: No Known Affected Area: No (Gómez Carlos MD R1) History of Present Illness HPI Patient is a 25 year old female presented to the ED due to right pelvic pain. Patient was seen here in the ED last night and found to have a large right well- defined ovarian cyst that measures 6 cm x 4.5 cm along with a 1.7 cm calcified uterine fibroid in the anterior fundus. She had presented last night initially with nausea and vomiting of 3 hours duration along with feeling very ill and body aches. She was afebrile at that time. She was negative for influenza and her blood cultures are now negative after one day. She did not present with abdominal or pelvic pain, however the ED physician reexamined the patient and she was found to have right lower abdominal pain which prompted the abdomen/ pelvis CT. Patient now reports that her pain has been progressively worsening throughout the course of the day today. She states she felt ok when she woke up this morning and went to work. At about 09:00 this morning she noticed right lower abdominal / pelvic pain that lasted for about 20-30 minutes. The pain then subsided for about 15 minutes and occurred again for another 20-30 minutes. She reports intermittent pain like this throughout today. Currently after receiving morphine in the ED she states her pain is at a 3/10. She denies fevers, no nausea or vomiting today. She denies any previous episodes of abdominal or pelvic pain. She was last sexually active with her boyfriend about a week and a half ago. Denies trauma to her pelvis. Denies vaginal bleeding. She does report a milky white vaginal discharge. She denies any urinary symptoms. Para: 2 : 2 (Gómez Carlos MD R1) History Past Medical History Narrative Medical Iron deficiency anemia (Gómez Carlos MD R1) Obstetric History Obstetric History 1 7 years ago Patient reports a section 2 years ago No other pregnancies (Gómez Carlos MD R1) Past Surgical History Narrative Surgical section x 1 (Gómez Carlos MD R1) Family History Narrative Family History Patient denies known family history of uterine fibroids, uterine or ovarian or breast cancer Mother is 54 years of age, reportedly healthy Father is 75 years of age, reportedly healthy (Gómez Carlos MD R1) Social History Narrative Social History Denies cigarette use, etoh intake Admits to smoking marijuana about a month and a half ago Lives with boyfriend Sexually active with her boyfriend last time of intercourse was about a week and a half ago Alcohol Use: No Tobacco Use: No Substance Abuse: Yes (Gómez Carlos MD R1) Allergies-Medications (Allergen,Severity, Reaction): Coded Allergies: No Known Allergies (Verified , 07/03/16) Home Meds Active Scripts Ibuprofen 600 Mg [id number] Mg PO Q6H PRN (Pain/Inflammation) #40 TAB Ref 0 Prov:Janie Lopez DO 07/04/16 Oxycodone-Acetaminophen (Percocet)5-325 mg Tab1 Tab PO Q6H PRN (PAIN) #7 TAB Ref 0 Prov:Janie Lopez DO 07/04/16 Ondansetron Odt (Zofran Odt)4 Mg Tab4 Mg SL Q6HR PRN (Nausea/Vomiting) #10 TAB Ref 0 Prov:Nancy Faustin MD 07/03/16 Discontinued Reported Medications Docusate Sod/Senna (Senna Plus 8.6-50 mg)1 Tab Tab2 Tab PO HS 04/21/09 Naproxen Sodium (Anaprox Ds)550 Mg [id number] Mg PO BID #45 04/21/09 Ferrous Sulfate 18 Mg Tab Po UNKNOWN DOSE 04/19/09 Multivit/Min/Fol Ac/Iron/Pren ( Vit ( Plus)) Tab1 Tab PO DAILY 04/19/09 Discontinued Scripts Doxycycline Hyclate 100 mg 100 Mg [id number] Mg PO BID #14 Ref 0 Prov:LIANA GRIGGS M.D. R3 06/19/09 Review of Systems General / Constitutional: No: Fever, Chills Cardiovascular: No: Chest Pain or Discomfort, Palpitations Respiratory: No: Cough, Short of Breath, Wheezing Gastrointestinal: No: Nausea, Vomiting, Diarrhea, Constipation Genitourinary: Pelvic Pain, Discharge, No: Urgency, Dysuria, Hematuria, Vaginal Bleeding (Gómez Carlos MD R1) Physical Exam Vital Signs Date Time Temp Pulse Resp B/P Pulse Ox O2 Delivery O2 Flow Rate FiO2 07/03/16 19:37 67 14 116/65 98 Room Air 07/03/16 18:54 61 16 116/66 99 Room Air 07/03/16 16:14 97.9 70 24 114/62 100 Room Air Narrative GENERAL: NAD, resting comfortably in bed NEURO: AOx3. Normal speech. seed cleaner grossly intact. Motor grossly normal. SKIN: Warm and dry. No rashes or erythema. HEAD: Normocephalic. Atraumatic. EYES: PERRL. EOMI. No scleral icterus. No injection or drainage. ENT: No nasal drainage. Moist mucous membranes. No oral ulcers or lesions. NECK: Supple, trachea midline. No JVD or lymphadenopathy. CARDIOVASCULAR: Regular rate and rhythm without murmurs, rubs, or gallops. Peripheral pulses 2+. Capillary refill < 2 seconds. RESPIRATORY: Breath sounds clear to auscultation and equal bilaterally, without wheezes, rales, or rhonchi. No accessory muscle use. GASTROINTESTINAL: Abdomen soft, nontender, nondistended, normal BS. No organomegaly or masses. No rebound tenderness. No guarding. MUSCULOSKELETAL: No edema, cyanosis, or clubbing. Normal range of motion. BACK: Nontender without obvious deformity. (Gómez Carlos MD R1) Data Data Vital Signs Reviewed: Yes Orders Complete Blood Count With Diff (07/03/16 17:29) Basic Metabolic Panel (Bmp) (07/03/16 17:29) Iv Access Insert/Monitor (07/03/16 17:29) Sodium Chlor 0.9% 1000 Ml Inj (Ns 1000 M (07/03/16 17:29) Ondansetron Inj (Zofran Inj) (07/03/16 17:30) Morphine Inj (Morphine Inj) (07/03/16 17:45) Morphine Inj (Morphine Inj) (07/03/16 19:30) Us Pelvis Comp W Doppler (07/03/16 ) Wet Prep Profile (07/03/16 20:06) Beta Hcg (Quant/Titer) (07/03/16 20:59) Labs Laboratory Tests Test 07/03/16 07/03/16 17:47 20:05 White Blood Count 12.8 Red Blood Count 3.97 Hemoglobin 10.3 Hematocrit 33.5 Mean Corpuscular Volume 84.3 Mean Corpuscular Hemoglobin 26.0 Mean Corpuscular Hemoglobin 30.9 Concent Red Cell Distribution Width 13.7 Platelet Count 231 Mean Platelet Volume 9.5 Neutrophils (%) (Auto) 71.3 Lymphocytes (%) (Auto) 21.0 Monocytes (%) (Auto) 6.2 Eosinophils (%) (Auto) 1.0 Basophils (%) (Auto) 0.5 Neutrophils # (Auto) 9.1 Lymphocytes # (Auto) 2.7 Monocytes # (Auto) 0.8 Eosinophils # (Auto) 0.1 Basophils # (Auto) 0.1 CBC Comment DIFF FINAL Differential Comment Sodium Level 142 Potassium Level 3.5 Chloride Level 106 Carbon Dioxide Level 26.2 Anion Gap 10 Blood Urea Nitrogen 7 Creatinine 0.75 Estimat Glomerular Filtration 112 Rate Random Glucose 84 Calcium Level 8.8 Human Chorionic Gonadotropin, LESS THAN 1 Quant Clue Cells (Wet Prep) NONE SEEN Vaginal Trichomonas (Wet Prep) NONE SEEN Vaginal Yeast (Wet Prep) NONE SEEN (Gómez Carlos MD R1) MDM Medical Record Reviewed: Yes Plan 25 year old female presented to ED due to worsening intermittent right pelvic pain throughout today. Pelvic ultrasound with doppler findings show a large right ovarian cyst measuring rafi. 7.4 x 6.7 cm and smaller left ovarian cyst measuring 4.8 cm x 2.0. Ultrasound also shows rafi. 1.8 cm calcified fibroid. Endometrial stripe is 3 mm. There is no free fluid. Blood flow was visualized in both ovaries. The patient has a negative test. Wet prep is negative. A CT of abdomen/pelvis done yesterday was negative for appendicitis. Differential at this time includes ovarian cysts, ovarian torsion, less likely ruptured or hemorrhagic ovarian cyst given patients pain is now better controlled, patient is hemodynamically stable, and with no free fluid and good blood flow in both ovaries. Recommend continuing with pain control with tylenol or morphine as needed and placing patient in observation overnight. Will consider laparoscopy if the patient continues to have severe intermittent pain and if there is a higher suspicion for ovarian torsion. (Gómez Cralos MD R1 ) Scripts Ibuprofen 600 Mg [id number] Mg PO Q6H PRN (Pain/Inflammation) #40 TAB Ref 0 Prov:Janie Lopez DO 07/04/16 Oxycodone-Acetaminophen (Percocet)5-325 mg Tab1 Tab PO Q6H PRN (PAIN) #7 TAB Ref 0 Prov:Janie Lopez DO 07/04/16 Addendum Remarks Patient evaluated Chart labs reviewed Ultrasound reviewed After monitoring patient's for several hours she is much improved Physical examination there is no acute abdomen no rebound tenderness her abdomen is soft Vital signs are stable We'll discharge patient home with by mouth pain medicine She has been given office number to make an appointment in the a.m. Patient to be managed as an outpatient (Samia Warner MD) Gómez Carlos MD R1 Jul 03, 2016 23:28 Samia Warner MD Jul 04, 2016 00:23
[2016-07-04] MEDS ORDERED: IBUP-232 PO (00:11)
[2016-07-04] MEDS ORDERED: PERC5TAB12 PO (00:11)
[2016-07-04] MEDS ORDERED: oxyCODONE/ACETAMINOPHEN 5 MG/325 MG TAB PO ONE (00:45)
[2016-07-04 00:47] VITALS: BP 116/64
== END 2016-07-04 01:25 | disposition home or self-care (01) ==
LOC: NEPD 16:11
DX: N83.201 Unspecified ovarian cyst, right side (principal); N83.202 Unspecified ovarian cyst, left side; D64.9 Anemia, unspecified
CPT/HCPCS: 76856; 80048; 84702; 85025; 87210; 93975; 96361; 96374; 96375; 96376; 99284; J2270; J2405; J7030

== ENCOUNTER 2016-07-16 19:41 | Emergency (ER) | payer OTHER, MEDICAID ==
[~2016-07-16] VITALS: Ht 175.3 cm; Wt 60.0 kg
[~2016-07-16 19:41] MED LIST changes: +IBUP-232 PO; +PERC5TAB12 PO
[2016-07-16 19:43] VITALS: BP 157/85; PULSE 89; RESP 14; TEMP 99.1; O2SAT 99
[2016-07-16] MEDS ORDERED: PANTOPRAZOLE SODIUM 40 MG VIAL IVP ONE (20:30)
[2016-07-16] MEDS ORDERED: ONDANSETRON HCL 4 MG/2 ML VIAL IVP ONE (20:30)
[2016-07-16] MEDS ORDERED: ALUMINUM/MAGNESIUM/SIMETH 30 ML CUP PO ONE (20:30)
[2016-07-16] MEDS ORDERED: LIDOCAINE VISCOUS 2% SOLN 15 ML UDC PO ONE (20:30)
--- NOTE | 2016-07-16 20:32 | PD ---
HPI Chief Complaint: GI Complaint Time Seen by Provider: 20:20 Travel History International Travel<30 days: No Contact w/Intl Traveler<30days: No Traveled to known affect area: No History of Present Illness HPI 25-year-old female presents for evaluation of abdominal pain. Symptoms started 3-4 days ago. She describes it as an intermittent sharp pain in the epigastrium /left upper quadrant. When it comes on it lasts for a few minutes at a time and then resolves. There are no obvious aggravating or relieving factors. The pain does not radiate into the back, chest. She endorses occasional nausea. Denies vomiting, fevers or chills, flank pain, dysuria, increased urinary frequency, pelvic pain, vaginal discharge. Her last period was 2 days ago. Initially she thought that the pain was attributed to gas and so she tried taking a warm bath which seemed to help. Per chart review the patient was seen here July 02. She had a CT of the abdomen and pelvis that revealed a large right-sided ovarian cyst as well as a very small umbilical hernia. Seen here on July 03 complaining of pelvic pain and she underwent a pelvic ultrasound which revealed uterine fibroid, large right-sided ovarian cyst, small left- sided ovarian cyst. She was seen by MEAT CLERK Dr. Romero recommended outpatient follow-up. She was discharged with prescriptions for Percocet and ibuprofen. She reports that the pain that she is having now is nothing like the pelvic pain that she was experiencing last visit. She has an appointment with MEAT CLERK doctor Garcia on July 23. She is currently using ibuprofen twice a day for pain. She has completed the Percocet prescription. She has no other complaints. [facility] Past Medical History Anemia: Yes Diminished Hearing: No Tetanus Vaccination: > 5 Years Influenza Vaccination: No ?: Not LMP: 07/07/16 : 2 Para: 2 Ovarian Cysts: Yes Past Surgical History Section: Yes (X1) Social History Alcohol Use: No Tobacco Use: No Substance Use: No Allergies-Medications (Allergen,Severity, Reaction): Coded Allergies: No Known Allergies (Verified , 07/16/16) Reported Meds & Prescriptions Reported Meds & Active Scripts Active Protonix (Pantoprazole Sodium) 20 Mg Tab 20 Mg PO DAILY Review of Systems Except as stated in HPI: all other systems reviewed are Neg Physical Exam Narrative GENERAL: Pleasant well-developed well-nourished female in no acute distress SKIN: Warm and dry. HEAD: Atraumatic. Normocephalic. EYES: Pupils equal and round. No scleral icterus. No injection or drainage. ENT: No nasal bleeding or discharge. Mucous membranes pink and moist. NECK: Trachea midline. No JVD. CARDIOVASCULAR: Regular rate and rhythm. No murmur appreciated. RESPIRATORY: No accessory muscle use. Clear to auscultation. Breath sounds equal bilaterally. GASTROINTESTINAL: Abdomen soft, mild epigastric/left upper quadrant tenderness and no guarding. No right upper quadrant tenderness. No tenderness to palpation in lower quadrants. No palpable masses. MUSCULOSKELETAL: No obvious deformities. No edema NEUROLOGICAL: Awake and alert. No obvious cranial nerve deficits. Motor grossly within normal limits. Normal speech. PSYCHIATRIC: Appropriate mood and affect; insight and judgment normal. Data Data Last Documented VS Vital Signs Date Time Temp Pulse Resp B/P Pulse Ox O2 Delivery O2 Flow Rate FiO2 07/16/16 21:49 72 18 125/73 100 Room Air 07/16/16 19:43 99.1 Orders Complete Blood Count With Diff (07/16/16 20:26) Comprehensive Metabolic Panel (07/16/16 20:26) Lipase (07/16/16 20:26) Urinalysis - C+S If Indicated (07/16/16 20:26) Ondansetron Inj (Zofran Inj) (07/16/16 20:30) Pantoprazole Inj (Protonix Inj) (07/16/16 20:30) Al-Mag Hy-Si 40-40-4 Mg/Ml Liq (Mag-Al P (07/16/16 20:30) Lidocaine 2% Viscous (Xylocaine 2% Visco (07/16/16 20:30) Ed Urine Pregnancytest Poc (07/16/16 20:26) Labs Laboratory Tests Test 07/16/16 20:30 White Blood Count 6.2 TH/MM3 Red Blood Count 4.25 MIL/MM3 Hemoglobin 11.7 GM/DL Hematocrit 35.0 % Mean Corpuscular Volume 82.4 FL Mean Corpuscular Hemoglobin 27.4 PG Mean Corpuscular Hemoglobin 33.3 % Concent Red Cell Distribution Width 13.9 % Platelet Count 301 TH/MM3 Mean Platelet Volume 9.3 FL Neutrophils (%) (Auto) 38.3 % Lymphocytes (%) (Auto) 53.2 % Monocytes (%) (Auto) 6.4 % Eosinophils (%) (Auto) 1.1 % Basophils (%) (Auto) 1.0 % Neutrophils # (Auto) 2.4 TH/MM3 Lymphocytes # (Auto) 3.3 TH/MM3 Monocytes # (Auto) 0.4 TH/MM3 Eosinophils # (Auto) 0.1 TH/MM3 Basophils # (Auto) 0.1 TH/MM3 CBC Comment DIFF FINAL Differential Comment Urine Color YELLOW Urine Turbidity CLEAR Urine pH 7.0 Urine Specific [place] 1.030 Urine Protein TRACE mg/dL Urine Glucose (UA) NEG mg/dL Urine Ketones TRACE mg/dL Urine Occult Blood NEG Urine Nitrite NEG Urine Bilirubin NEG Urine Urobilinogen LESS THAN 2.0 MG/DL Urine Leukocyte Esterase NEG Urine RBC 1 /hpf Urine WBC 3 /hpf Urine Squamous Epithelial 2 /hpf Cells Urine Mucus FEW /lpf Microscopic Urinalysis Comment CULT NOT INDICATED Sodium Level 140 MEQ/L Potassium Level 3.5 MEQ/L Chloride Level 104 MEQ/L Carbon Dioxide Level 30.3 MEQ/L Anion Gap 6 MEQ/L Blood Urea Nitrogen 10 MG/DL Creatinine 0.96 MG/DL Estimat Glomerular Filtration 84 ML/MIN Rate Random Glucose 77 MG/DL Calcium Level 8.9 MG/DL Total Bilirubin 0.7 MG/DL Aspartate Amino Transf 17 U/L (AST/SGOT) Alanine Aminotransferase 13 U/L (ALT/SGPT) Alkaline Phosphatase 50 U/L Total Protein 7.7 GM/DL Albumin 4.0 GM/DL Lipase 152 U/L MDM Medical Decision Making Medical Screen Exam Complete: Yes Emergency Medical Condition: Yes Medical Record Reviewed: Yes Differential Diagnosis Gastritis, peptic ulcer disease, pancreatitis, ruptured ovarian cyst, Janie Stewart syndrome, biliary pathology, transverse colitis Narrative Course 25-year-old female with known large right-sided ovarian cyst having underwent CT of the abdomen and pelvis on July 02, topical ultrasound July 03. She presents now with intermittent epigastric/left upper quadrant pain for the past few days. She is currently on ibuprofen which was prescribed here on July 03. Physical examination is reassuring. Her abdomen is very soft with no peritoneal signs. She has no tenderness to palpation in the pelvic region today. She has mild tenderness to palpation in the epigastrium/left upper quadrant. Her symptoms may be secondary to gastritis from the NSAID use. I don 't suspect her ovarian cyst has anything to do with her pain today. The patient will be given Protonix, GI cocktail. Basic lab work has been ordered. The patient's lab work is unremarkable. Upon reexamination she feels significantly improved, she felt that the GI cocktail and particular helped with her pain. Plan would be to discharge the patient with Protonix. Recommended discontinuing the ibuprofen. If the symptoms persist, recommend outpatient follow-up with GI referral for endoscopy for definitive diagnosis. Discussed signs and symptoms that would warrant returning to the emergency room. She is stable for discharge. Diagnosis Primary Impression: Gastritis Qualified Code: K29.00 - Acute gastritis without hemorrhage, unspecified gastritis type Additional Instructions: Quit taking ibuprofen. Avoid [id number] NSAIDs such as aspirin, naproxen , Aleve, Advil, Motrin, ibuprofen. Medication as prescribed. Follow-up closely with primary care physician. Return for any acutely new or worsening symptoms. Med/Other Pt SpecificInfo: Prescription(s) given Scripts Pantoprazole (Protonix)20 Mg Tab20 Mg PO DAILY #30 TAB Ref 0 Prov:Nu Zurita MD 07/16/16 Disposition: DISCHARGE HOME Condition: Stable Shun Hunt July 16, 2016 20:32
[2016-07-16 20:55] LABS: AUTOMATED NEUTROPHIL # 2.4 TH/MM3 (1.8-7.7); BASOPHIL # 0.1 TH/MM3 (0-0.2); EOSINOPHIL # 0.1 TH/MM3 (0-0.4); EOSINOPHIL % 1.1 % (0.0-4.0); HEMO FLAGS DIFF FINAL; LYMPH % 53.2 % (9.0-44.0); LYMPHOCYTE # 3.3 TH/MM3 (1.0-4.8); MEAN CELL VOLUME 82.4 FL (80.0-100.0); MEAN CORPUSCULAR HEMOGLOBIN 27.4 PG (27.0-34.0); MEAN CORPUSCULAR HGB CONC 33.3 % (32.0-36.0); MONO % 6.4 % (0.0-8.0); NEUT % 38.3 % (16.0-70.0); PLATELET COUNT 301 TH/MM3 (150-450); RED BLOOD COUNT 4.25 MIL/MM3 (4.00-5.30); RED CELL DISTRIBUTION WIDTH 13.9 % (11.6-17.2); WHITE BLOOD COUNT 6.2 TH/MM3 (4.0-11.0)
[2016-07-16 21:41] LABS: ANION GAP 6 MEQ/L (5-15); AST (GOT) 17 U/L (15-37); BICARBONATE 30.3 MEQ/L (21.0-32.0); BLOOD UREA NITROGEN 10 MG/DL (7-18); BLOOD, URINE NEG (NEG); CHLORIDE 104 MEQ/L (98-107); COMMENT (UR) CULT NOT INDICATED; CULTURE IF INDICATED CULT NOT INDICATED; GLOMERULAR FILTRATION RATE 84 ML/MIN (>89); GLUCOSE,URINE NEG (NEG); KETONE, URINE TRACE mg/dL (NEG); MUCUS URINE FEW /lpf (OCC); NITRITE,URINE NEG (NEG); POTASSIUM 3.5 MEQ/L (3.5-5.1); SODIUM (NA) 140 MEQ/L (136-145); SQUAMOUS EPITHELIAL CELL URINE 2 /hpf (0-5); URINE COLOR YELLOW (YELLW/STRAW)
[2016-07-16 21:44] LABS: ALKALINE PHOSPHATASE 50 U/L (45-117); ALT (GPT) 13 U/L (10-53); TOTAL BILIRUBIN ADULT 0.7 MG/DL (0.2-1.0)
[2016-07-16 21:49] VITALS: BP 125/73; PULSE 72; RESP 18; O2SAT 100
[2016-07-16] MEDS ORDERED: PANT20 PO (21:57)
== END 2016-07-16 22:27 | disposition home or self-care (01) ==
LOC: NEPD 19:41
DX: K29.00 Acute gastritis without bleeding (principal)
CPT/HCPCS: 80053; 81001; 83690; 84703; 85025; 96374; 96375; 99284; C9113; J2405

== ENCOUNTER 2016-11-25 22:24 | Emergency (ER) | payer OTHER, MEDICAID ==
[~2016-11-25 22:24] MED LIST changes: -IBUP-232 PO; +PANT20 PO; -PERC5TAB12 PO; -ZOFR4TAB3 SL
[2016-11-25 22:31] VITALS: BP 158/74; PULSE 69; RESP 20; TEMP 97.4; O2SAT 99
[2016-11-25] MEDS ORDERED: SODIUM CHLOR 0.9% 1000 ML INJ 1,000 ML IV SCH (22:32)
--- NOTE | 2016-11-25 22:43 | PD ---
HPI Chief Complaint: Abdominal Pain Time Seen by Provider: 22:32 Travel History International Travel<30 days: No Contact w/Intl Traveler<30days: No Traveled to known affect area: No History of Present Illness HPI Patient is a 25-year-old female who presents to emergency room complaints of abdominal pain. Patient reports that she began to have severe lower abdominal pain around 5 PM this afternoon. 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 Patient reports that she has having cramping lower abdominal pain with increased nausea and vomiting since 5 PM. Patient reports that she has never had pain like this in the past. Reports only surgical history of . Patient with no fevers or chills , denies any vaginal discharge at this time. PFSH Past Medical History Anemia: Yes Diminished Hearing: No Reproductive: Yes (OVARIAN CYST) Tetanus Vaccination: Unknown Influenza Vaccination: No ?: Not : 2 Para: 2 Ovarian Cysts: Yes Past Surgical History Section: Yes (X1) Social History Alcohol Use: Yes Tobacco Use: No Substance Use: No Allergies-Medications (Allergen,Severity, Reaction): Coded Allergies: No Known Allergies (Verified , 11/25/16) Reported Meds & Prescriptions Reported Meds & Active Scripts Active No Active Prescriptions or Reported Medications Review of Systems General / Constitutional: No: Fever Eyes: No: Visual changes HENT: No: Headaches Cardiovascular: No: Chest Pain or Discomfort Respiratory: No: Shortness of Breath Gastrointestinal: Positive: Nausea, Vomiting, Abdominal Pain Genitourinary: No: Dysuria Musculoskeletal: No: Pain Skin: No Rash Neurologic: No: Weakness Psychiatric: No: Depression Endocrine: No: Polydipsia Hematologic/Lymphatic: No: Easy Bruising Physical Exam Narrative GENERAL: moderate distress SKIN: Focused skin assessment warm/dry. HEAD: Atraumatic. Normocephalic. EYES: Pupils equal and round. No scleral icterus. No injection or drainage. ENT: No nasal bleeding or discharge. Mucous membranes pink and moist. NECK: Trachea midline. No JVD. CARDIOVASCULAR: Regular rate and rhythm. No murmur appreciated. RESPIRATORY: No accessory muscle use. Clear to auscultation. Breath sounds equal bilaterally. GASTROINTESTINAL: Abdomen soft, increased tenderness to lower abdomen with guarding on exam, nondistended. : patient refuses pelvic exam at this time MUSCULOSKELETAL: No obvious deformities. No clubbing. No cyanosis. No edema. NEUROLOGICAL: Awake and alert. No obvious cranial nerve deficits. Motor grossly within normal limits. Normal speech. PSYCHIATRIC: Appropriate mood and affect; insight and judgment normal. Data Data Last Documented VS Vital Signs Date Time Temp Pulse Resp B/P (MAP) Pulse Ox O2 Delivery O2 Flow Rate FiO2 11/25/16 22:49 100 Room Air 11/25/16 22:31 97.4 69 20 Orders Orders Beta Hcg (Quant/Titer) (11/25/16 22:32) Complete Blood Count With Diff (11/25/16 22:32) Comprehensive Metabolic Panel (11/25/16 22:32) Lipase (11/25/16 22:32) Prothrombin Time / Inr (Pt) (11/25/16 22:32) Act Partial Throm Time (Ptt) (11/25/16 22:32) Urinalysis - C+S If Indicated (11/25/16 22:32) Ct Abd/Pel W Iv Contrast(Rout) (11/25/16 22:32) Iv Access Insert/Monitor (11/25/16 22:32) Ecg Monitoring (11/25/16 22:32) Oximetry (11/25/16 22:32) Ondansetron Inj (Zofran Inj) (11/25/16 22:45) Sodium Chlor 0.9% 1000 Ml Inj (Ns 1000 M (11/25/16 22:32) Sodium Chloride 0.9% Flush (Ns Flush) (11/25/16 22:45) Hydromorphone Pf Inj (Dilaudid Pf Inj) (11/25/16 22:45) Ed Urine Pregnancytest Poc (11/25/16 22:32) Gc And Chlamydia Pcr (11/25/16 22:35) Wet Prep Profile (11/25/16 22:35) Chest, Single Ap (11/25/16 22:41) Iohexol 350 Inj (Omnipaque 350 Inj) (11/25/16 23:09) Hydromorphone Pf Inj (Dilaudid Pf Inj) (11/25/16 23:30) Us Pelvis Comp W Dop Transvag (11/25/16 22:32) Gc And Chlamydia Pcr (11/26/16 01:05) Ondansetron Inj (Zofran Inj) (11/26/16 01:45) Labs Laboratory Tests Test 11/25/16 22:40 11/26/16 00:00 White Blood Count 9.4 TH/MM3 Red Blood Count 4.31 MIL/MM3 Hemoglobin 11.6 GM/DL Hematocrit 35.9 % Mean Corpuscular Volume 83.4 FL Mean Corpuscular Hemoglobin 27.0 PG Mean Corpuscular Hemoglobin Concent 32.3 % Red Cell Distribution Width 14.6 % Platelet Count 278 TH/MM3 Mean Platelet Volume 9.7 FL Neutrophils (%) (Auto) 71.9 % Lymphocytes (%) (Auto) 23.1 % Monocytes (%) (Auto) 3.6 % Eosinophils (%) (Auto) 0.4 % Basophils (%) (Auto) 1.0 % Neutrophils # (Auto) 6.7 TH/MM3 Lymphocytes # (Auto) 2.2 TH/MM3 Monocytes # (Auto) 0.3 TH/MM3 Eosinophils # (Auto) 0.0 TH/MM3 Basophils # (Auto) 0.1 TH/MM3 CBC Comment DIFF FINAL Differential Comment Prothrombin Time 13.8 SEC Prothromb Time International Ratio 1.2 RATIO Activated Partial Thromboplast Time 19.2 SEC Blood Urea Nitrogen 12 MG/DL Creatinine 1.03 MG/DL Random Glucose 151 MG/DL Total Protein 7.8 GM/DL Albumin 3.8 GM/DL Calcium Level 8.4 MG/DL Alkaline Phosphatase 40 U/L Aspartate Amino Transf (AST/SGOT) 21 U/L Alanine Aminotransferase (ALT/SGPT) 19 U/L Total Bilirubin 0.5 MG/DL Sodium Level 141 MEQ/L Potassium Level 3.8 MEQ/L Chloride Level 109 MEQ/L Carbon Dioxide Level 24.3 MEQ/L Anion Gap 8 MEQ/L Estimat Glomerular Filtration Rate 78 ML/MIN Lipase 134 U/L Human Chorionic Gonadotropin, Quant LESS THAN 1 MIU/ML Urine Color YELLOW Urine Turbidity CLEAR Urine pH 7.5 Urine Specific [place] GREATER THAN 1.050 Urine Protein 30 mg/dL Urine Glucose (UA) NEG mg/dL Urine Ketones NEG mg/dL Urine Occult Blood NEG Urine Nitrite NEG Urine Bilirubin NEG Urine Urobilinogen LESS THAN 2.0 MG/DL Urine Leukocyte Esterase NEG Urine RBC 2 /hpf Urine WBC LESS THAN 1 /hpf Urine Squamous Epithelial Cells 2 /hpf Urine Mucus FEW /lpf Microscopic Urinalysis Comment CULT NOT INDICATED Chlamydia trachomatis DNA (PCR) NOT DETECTED Neisseria gonorrhoeae DNA (PCR) NOT DETECTED MDM Medical Decision Making Medical Screen Exam Complete: Yes Emergency Medical Condition: Yes Interpretation(s) Vital Signs Date Time Temp Pulse Resp B/P (MAP) Pulse Ox O2 Delivery O2 Flow Rate FiO2 11/25/16 22:31 97.4 69 20 158/74 (102) 99 Room Air Differential Diagnosis Differential includes ovarian torsion, ruptured ovarian cysts, ectopic , appendicitis, gastritis, gastroenteritis, colitis, cervicitis Narrative Course Patient is a 25-year-old female who presents to emergency room with complaints of severe lower abdominal pain which began around 5 PM this afternoon. Patient is uncomfortable on exam, she has have lower abdominal tenderness at this time. Patient was placed on rn cardiac upon arrival to the emergency room, CBC, CMP, hCG Quant, UA, CT of abdomen and pelvis as well as pelvic ultrasound ordered. Plan to perform pelvic exam to rule out cervicitis or adnexal tenderness after patient is comfortable. We'll provide antiemetics, IV fluids and medications for pain at this time. Plan to continue to monitor patient on rn cardiac. 1127pm - patient re-evaluated, patient with continued pain, will remedicate patient Last Impressions Chest X-Ray 11/25/16 2241 Signed Impressions: Service Date/Time: Friday, November 25, 2016 22:47 - CONCLUSION: Normal examination. Raphael Magallanes Jr., MD Abdomen/Pelvis CT 11/25/[id number] Signed Impressions: Service Date/Time: Friday, November 25, 2016 23:10 - CONCLUSION: 1. No acute abnormality. 2. Small uterine fibroid. 3. Periportal edema involving the liver which can be seen in crystalloid administration. Raphael Magallanes Jr., MD CBC & BMP Diagram 11/25/16 22:40 Total Protein 7.8, Albumin 3.8, Calcium Level 8.4 L, Alkaline Phosphatase 40 L, Aspartate Amino Transf (AST/SGOT) 21, Alanine Aminotransferase (ALT/SGPT) 19, Total Bilirubin 0.5 Patient reevaluated, patient is feeling much better at this time. Discussed need for pelvic exam, patient refuses pelvic at this time as she was recently seen and had this exam performed by her biology lecturer. Urine G/C sent and was negative I reviewed all resulted labs and studies with her in detail, pelvic us pending Laboratory Tests Test 11/25/16 22:40 11/26/16 00:00 White Blood Count 9.4 TH/MM3 (4.0-11.0) Red Blood Count 4.31 MIL/MM3 (4.00-5.30) Hemoglobin 11.6 GM/DL (11.6-15.3) Hematocrit 35.9 % (35.0-46.0) Mean Corpuscular Volume 83.4 FL (80.0-100.0) Mean Corpuscular Hemoglobin 27.0 PG (27.0-34.0) Mean Corpuscular Hemoglobin Concent 32.3 % (32.0-36.0) Red Cell Distribution Width 14.6 % (11.6-17.2) Platelet Count 278 TH/MM3 (150-450) Mean Platelet Volume 9.7 FL (7.0-11.0) Neutrophils (%) (Auto) 71.9 % (16.0-70.0) Lymphocytes (%) (Auto) 23.1 % (9.0-44.0) Monocytes (%) (Auto) 3.6 % (0.0-8.0) Eosinophils (%) (Auto) 0.4 % (0.0-4.0) Basophils (%) (Auto) 1.0 % (0.0-2.0) Neutrophils # (Auto) 6.7 TH/MM3 (1.8-7.7) Lymphocytes # (Auto) 2.2 TH/MM3 (1.0-4.8) Monocytes # (Auto) 0.3 TH/MM3 (0-0.9) Eosinophils # (Auto) 0.0 TH/MM3 (0-0.4) Basophils # (Auto) 0.1 TH/MM3 (0-0.2) CBC Comment DIFF FINAL Differential Comment Prothrombin Time 13.8 SEC (9.8-11.6) Prothromb Time International Ratio 1.2 RATIO Activated Partial Thromboplast Time 19.2 SEC (24.3-30.1) Blood Urea Nitrogen 12 MG/DL (7-18) Creatinine 1.03 MG/DL (0.50-1.00) Random Glucose 151 MG/DL (74-106) Total Protein 7.8 GM/DL (6.4-8.2) Albumin 3.8 GM/DL (3.4-5.0) Calcium Level 8.4 MG/DL (8.5-10.1) Alkaline Phosphatase 40 U/L (45-117) Aspartate Amino Transf (AST/SGOT) 21 U/L (15-37) Alanine Aminotransferase (ALT/SGPT) 19 U/L (10-53) Total Bilirubin 0.5 MG/DL (0.2-1.0) Sodium Level 141 MEQ/L (136-145) Potassium Level 3.8 MEQ/L (3.5-5.1) Chloride Level 109 MEQ/L (98-107) Carbon Dioxide Level 24.3 MEQ/L (21.0-32.0) Anion Gap 8 MEQ/L (5-15) Estimat Glomerular Filtration Rate 78 ML/MIN (>89) Lipase 134 U/L (73-393) Human Chorionic Gonadotropin, Quant LESS THAN 1 MIU/ML (0-5) Urine Color YELLOW (YELLW/STRAW) Urine Turbidity CLEAR (CLEAR) Urine pH 7.5 (5.0-8.5) Urine Specific [place] GREATER THAN 1.050 Urine Protein 30 mg/dL (NEG-TRACE) Urine Glucose (UA) NEG mg/dL (NEG) Urine Ketones NEG mg/dL (NEG) Urine Occult Blood NEG (NEG) Urine Nitrite NEG (NEG) Urine Bilirubin NEG (NEG) Urine Urobilinogen LESS THAN 2.0 MG/DL (LESS Urine Leukocyte Esterase NEG (NEG) Urine RBC 2 /hpf (0-3) Urine WBC LESS THAN 1 /hpf (0-5) Urine Squamous Epithelial Cells 2 /hpf (0-5) Urine Mucus FEW /lpf (OCC) Microscopic Urinalysis Comment CULT NOT INDICATED Last Impressions Chest X-Ray 11/25/162240 Signed Impressions: Service Date/Time: Friday, November 25, 2016 22:47 - CONCLUSION: Normal examination. Raphael Magallanes Jr., MD Abdomen/Pelvis/Transvag US 11/25/162231 Signed Impressions: Service Date/Time: Friday, November 25, 2016 23:24 - CONCLUSION: 1. 1.7 cm simple left ovarian cyst. 2. 1.8 cm calcified fundal fibroid. 3. No acute abnormality. Raphael Magallanes Jr., MD Abdomen/Pelvis CT 11/25/162231 Signed Impressions: Service Date/Time: Friday, November 25, 2016 23:10 - CONCLUSION: 1. No acute abnormality. 2. Small uterine fibroid. 3. Periportal edema involving the liver which can be seen in crystalloid administration. Raphael Magallanes Jr., MD Patient re-evaluated. Patient feeling much better at this time. I reviewed all labs and studies with patient in detail. She will return to ER if symptoms return. Patient will follow up with her primary care doctor tomorrow. She will follow up with all cultures from today. Abdomen is soft, nt/nd, no peritoneal signs at this time. Diagnosis Primary Impression: Abdominal pain Additional Impressions: Uterine fibroid periportal edema of liver Ovarian cyst Qualified Codes: N83.202 - Unspecified ovarian cyst, left side Patient Instructions: Narcotic given in the ED, General Instructions Additional Instructions: Please give patient a copy of her studies at discharge Please follow up with your primary care doctor in 12-24 hours Please bring your discharge paper work as well as your lab results with you as you will need follow up on all findings Please follow up with all cultures from today Return to ER if symptoms worsen or persist Scripts No Active Prescriptions or Reported Meds Disposition: 01 DISCHARGE HOME Condition: Stable Janie Lopez DO Nov 25, 2016 22:43
[2016-11-25] MEDS ORDERED: ONDANSETRON HCL 4 MG/2 ML VIAL IVP ONE (22:45)
[2016-11-25] MEDS ORDERED: SODIUM CHLORIDE 0.9% FLUSH 10 ML FLUSH IV FLUSH PRN (22:45)
[2016-11-25] MEDS ORDERED: HYDROmorphone HCL PF 1 MG/ML VIAL IVS ONE (22:45)
[2016-11-25 22:49] VITALS: O2SAT 100
[2016-11-25 22:54] LABS: AUTOMATED NEUTROPHIL # 6.7 TH/MM3 (1.8-7.7); BASOPHIL # 0.1 TH/MM3 (0-0.2); EOSINOPHIL % 0.4 % (0.0-4.0); HEMATOCRIT 35.9 % (35.0-46.0); HEMO FLAGS DIFF FINAL; LYMPH % 23.1 % (9.0-44.0); LYMPHOCYTE # 2.2 TH/MM3 (1.0-4.8); MEAN CELL VOLUME 83.4 FL (80.0-100.0); MEAN CORPUSCULAR HGB CONC 32.3 % (32.0-36.0); MONO % 3.6 % (0.0-8.0); NEUT % 71.9 % (16.0-70.0); PLATELET COUNT 278 TH/MM3 (150-450); RED BLOOD COUNT 4.31 MIL/MM3 (4.00-5.30); RED CELL DISTRIBUTION WIDTH 14.6 % (11.6-17.2); WHITE BLOOD COUNT 9.4 TH/MM3 (4.0-11.0)
--- NOTE | 2016-11-25 23:04 | RADRPT ---
EXAM DATE/TIME: 11/25/2016 22:47 [facility] COMPARISON: CHEST SINGLE AP, July 03, 2016, 0:46. INDICATIONS : Lower chest pain. MEDICAL HISTORY : Anemia. SURGICAL HISTORY : None. ENCOUNTER: Initial ACUITY: 1 day PAIN SCORE: 6/10 LOCATION: Bilateral lower chest FINDINGS: A single view of the chest demonstrates the lungs to be symmetrically aerated without evidence of mas s, infiltrate or effusion. The cardiomediastinal contours are unremarkable. Osseous structures are intact. Air is seen within the gastric fundus below the left hemidiaphragm. No appreciable pneumoperi toneum. CONCLUSION: Normal examination. Raphael Magallanes Jr., MD on November 25, 2016 at 23:02 Board Certified Radiologist. This report was verified electronically.
[2016-11-25] MEDS ORDERED: IOHEXOL 350 MG/ML 10 ML VIAL (for RAD DIAG) IVCONTRAST ONE (23:09)
[2016-11-25 23:16] LABS: ALT (GPT) 19 U/L (10-53); ANION GAP 8 MEQ/L (5-15); AST (GOT) 21 U/L (15-37); BICARBONATE 24.3 MEQ/L (21.0-32.0); BLOOD UREA NITROGEN 12 MG/DL (7-18); CHLORIDE 109 MEQ/L (98-107); GLOMERULAR FILTRATION RATE 78 ML/MIN (>89); POTASSIUM 3.8 MEQ/L (3.5-5.1); SODIUM (NA) 141 MEQ/L (136-145)
[2016-11-25 23:20] LABS: ALKALINE PHOSPHATASE 40 U/L (45-117); BETA HCG QUANT LESS THAN 1 MIU/ML (0-5); TOTAL BILIRUBIN ADULT 0.5 MG/DL (0.2-1.0)
[2016-11-25 23:21] LABS: APTT (PATIENT) 19.2 SEC (24.3-30.1); INTERNATIONAL NORMALIZED RATIO 1.2 RATIO; PROTHROMBIN TIME - PATIENT 13.8 SEC (9.8-11.6)
[2016-11-25] MEDS ORDERED: HYDROmorphone HCL PF 1 MG/ML VIAL IV PUSH ONE (23:30)
--- NOTE | 2016-11-25 23:35 | RADRPT ---
EXAM DATE/TIME: 11/25/2016 23:10 [facility] COMPARISON: CT ABDOMEN & PELVIS W CONTRAST, July 03, 2016, 1:22. INDICATIONS : Abdominal pain, nausea, and vomiting X one day. IV CONTRAST: 95 cc Omnipaque 350 (iohexol) IV ORAL CONTRAST: No oral contrast ingested. RADIATION DOSE: 5.23 CTDIvol (mGy) MEDICAL HISTORY : ovarian cysts SURGICAL HISTORY : section. ENCOUNTER: Initial ACUITY: 1 day PAIN SCALE: 6/10 LOCATION: Bilateral lower quadrant TECHNIQUE: Volumetric scanning of the abdomen and pelvis was performed. Using automated exposure control and ad justment of the mA and/or kV according to patient size, radiation dose was kept as low as reasonably achievable to obtain optimal diagnostic quality images. DICOM format image data is available electro nically for review and comparison. FINDINGS: LOWER LUNGS: The visualized lower lungs are clear. LIVER: Periportal edema is seen involving the liver. Homogeneous density without lesion. There is no dilati on of the biliary tree. No calcified gallstones. SPLEEN: Normal size without lesion. PANCREAS: Within normal limits. KIDNEYS: Normal in size and shape. There is no mass, stone or hydronephrosis. ADRENAL GLANDS: Within normal limits. VASCULAR: There is no aortic aneurysm. BOWEL/MESENTERY: The stomach, small bowel, and colon demonstrate no acute abnormality. There is no free intraperitone al air or fluid. ABDOMINAL WALL: Within normal limits. RETROPERITONEUM: There is no lymphadenopathy. BLADDER: No wall thickening or mass. REPRODUCTIVE: Within normal limits. A 1.8 cm rim calcified lesion is seen involving the uterus consistent with a de generating fibroid. INGUINAL: There is no lymphadenopathy or hernia. MUSCULOSKELETAL: Within normal limits for patient age. CONCLUSION: 1. No acute abnormality. 2. Small uterine fibroid. 3. Periportal edema involving the liver which can be seen in crystalloid administration. Raphael Magallanes Jr., MD on November 25, 2016 at 23:30 Board Certified Radiologist. This report was verified electronically.
--- NOTE | 2016-11-26 01:06 | RADRPT ---
EXAM DATE/TIME: 11/25/2016 23:24 [facility] COMPARISON: No previous studies available for comparison. INDICATIONS : Pelvic pain. MEDICAL HISTORY : Ovarian cysts. SURGICAL HISTORY : section. ENCOUNTER: Subsequent ACUITY: 2 days PAIN SCORE: 10/10 LOCATION: Bilateral pelvis MEASUREMENTS: UTERUS: 10.1 x 5.5 x 4.5 cm ENDOMETRIAL STRIPE: 4 mm RIGHT OVARY: 2.3 x 1.6 x 1.3 cm LEFT OVARY: 2.6 x 1.9 x 1.6 cm FINDINGS: UTERUS: The myometrium has homogeneous echotexture without mass. There is a 1.8 cm calcified fibroid involvi ng the fundus. RIGHT OVARY: Ovary contains no mass or significant cystic lesion.Normal blood flow seen. LEFT OVARY: Ovary contains no mass or significant cystic lesion.Normal blood flow seen. A 1.7 cm simple cyst obse rved. MISCELLANEOUS: No free fluid. CONCLUSION: 1. 1.7 cm simple left ovarian cyst. 2. 1.8 cm calcified fundal fibroid. 3. No acute abnormality. Raphael Magallanes Jr., MD on November 26, 2016 at 1:03 Board Certified Radiologist. This report was verified electronically.
[2016-11-26 01:27] LABS: BLOOD, URINE NEG (NEG); COMMENT (UR) CULT NOT INDICATED; CULTURE IF INDICATED CULT NOT INDICATED; GLUCOSE,URINE NEG (NEG); KETONE, URINE NEG (NEG); MUCUS URINE FEW /lpf (OCC); NITRITE,URINE NEG (NEG); PH, URINE 7.5 (5.0-8.5); SQUAMOUS EPITHELIAL CELL URINE 2 /hpf (0-5); URINE COLOR YELLOW (YELLW/STRAW)
[2016-11-26] MEDS ORDERED: ONDANSETRON HCL 4 MG/2 ML VIAL IV PUSH ONE (01:45)
[2016-11-26 04:34] LABS: CHLAMYDIA PCR NOT DETECTED (NOT DETECT); NEISSERIA PCR NOT DETECTED (NOT DETECT)
== END 2016-11-26 05:31 | disposition home or self-care (01) ==
LOC: NEPC 22:24
DX: R10.30 Lower abdominal pain, unspecified (principal); D25.9 Leiomyoma of uterus, unspecified; N83.202 Unspecified ovarian cyst, left side; R11.2 Nausea with vomiting, unspecified; D64.9 Anemia, unspecified
CPT/HCPCS: 71010; 74177; 76830; 76856; 80053; 81001; 83690; 84702; 84703; 85025; 85610; 85730; 87491; 87591; 93975; 96361; 96374; 96375; 96376; 99285; J1170; J2405; J7030; Q9967

== ENCOUNTER 2016-12-12 05:43 | Emergency (ER) | payer OTHER, MEDICAID ==
[2016-12-12 05:46] VITALS: BP 189/88; PULSE 68; RESP 24; TEMP 97.8; O2SAT 100
[2016-12-12] MEDS ORDERED: SODIUM CHLOR 0.9% 1000 ML INJ 1,000 ML IV SCH (05:58)
--- NOTE | 2016-12-12 05:58 | PD ---
HPI Chief Complaint: abdominal pain Time Seen by Provider: 05:45 Travel History International Travel<30 days: No Contact w/Intl Traveler<30days: No Traveled to known affect area: No History of Present Illness HPI The patient is a 26-year-old female who presents to the emergency department for abdominal pain. The patient was awakened at 2 AM with lower abdominal pelvic pain that started at 2 AM that is associated with nausea and vomiting. The patient's pain is located lower aspect of the abdomen, nonradiating, similar to pain she had several weeks ago where she was evaluated in the emergency department. The patient does have a history of ovarian cyst, denies any current dysuria, frequency, urgency, vaginal bleeding, or vaginal discharge. The patient is currently on oral contraceptive pills and cannot recall her last menstrual cycle, however, denies . She denies any upper abdominal pain except for epigastric pain when vomiting. Symptoms are moderate, there are no current alleviating or exacerbating factors. The patient did receive Zofran 4 mg intravenously by EMS prior to arrival. PFSH Past Medical History Anemia: Yes Diminished Hearing: No Reproductive: Yes (OVARIAN CYST) : 2 Para: 2 Ovarian Cysts: Yes Past Surgical History Section: Yes (X1) Social History Alcohol Use: Yes Tobacco Use: No Substance Use: No Allergies-Medications (Allergen,Severity, Reaction): Coded Allergies: No Known Allergies (Verified , 12/12/16) Reported Meds & Prescriptions Reported Meds & Active Scripts Active Reported [ control] 1 Tab PO DAILY Review of Systems Except as stated in HPI: all other systems reviewed are Neg General / Constitutional: No: Fever Cardiovascular: No: Chest Pain or Discomfort Respiratory: No: Shortness of Breath Gastrointestinal: Positive: Nausea, Vomiting, Abdominal Pain Genitourinary: Positive: Pelvic Pain, No: Dysuria, Discharge, Vaginal Bleeding Physical Exam Narrative GENERAL: Awake, alert, nontoxic-appearing 26-year-old female who appears her stated age and appears in moderate discomfort. SKIN: Focused skin assessment warm/dry. HEAD: Atraumatic. Normocephalic. EYES: Pupils equal and round. No scleral icterus. No injection or drainage. ENT: No nasal bleeding or discharge. Mucous membranes pink and moist. NECK: Trachea midline. No JVD. CARDIOVASCULAR: Regular rate and rhythm. No murmur appreciated. RESPIRATORY: No accessory muscle use. Clear to auscultation. Breath sounds equal bilaterally. GASTROINTESTINAL: Abdomen soft, mild tenderness from the umbilicus inferiorly bilateral but no guarding or rigidity. Back: No CVA tenderness. Pelvic: The exam was performed in the presence of a female nurse. External examination reveals no rashes or lesions. Speculum examination reveals a cervix that is closed. Minimal thick white vaginal discharge. No cervical motion tenderness. Minimal bilateral adnexal tenderness. MUSCULOSKELETAL: No obvious deformities. No clubbing. No cyanosis. No edema. NEUROLOGICAL: Awake and alert. No obvious cranial nerve deficits. Motor grossly within normal limits. Normal speech. PSYCHIATRIC: Appropriate mood and affect; insight and judgment normal. Data Data Last Documented VS Vital Signs Date Time Temp Pulse Resp B/P (MAP) Pulse Ox O2 Delivery O2 Flow Rate FiO2 12/12/16 05:46 97.8 68 24 189/88 (121) 100 Orders Orders Complete Blood Count With Diff (12/12/16 05:58) Comprehensive Metabolic Panel (12/12/16 05:58) Lipase (12/12/16 05:58) Urinalysis - C+S If Indicated (12/12/16 05:58) Iv Access Insert/Monitor (12/12/16 05:58) Ecg Monitoring (12/12/16 05:58) Oximetry (12/12/16 05:58) Sodium Chlor 0.9% 1000 Ml Inj (Ns 1000 M (12/12/16 05:58) Sodium Chloride 0.9% Flush (Ns Flush) (12/12/16 06:00) Famotidine Inj (Pepcid Inj) (12/12/16 06:00) Ketorolac Inj (Toradol Inj) (12/12/16 06:00) Hydromorphone Pf Inj (Dilaudid Pf Inj) (12/12/16 06:00) Ed Urine Pregnancytest Poc (12/12/16 05:58) Gc And Chlamydia Pcr (12/12/16 06:03) Wet Prep Profile (12/12/16 06:03) Morphine Inj (Morphine Inj) (12/12/16 09:00) Labs Laboratory Tests Test 12/12/16 06:00 12/12/16 06:25 12/12/16 08:40 White Blood Count 8.8 TH/MM3 Red Blood Count 4.35 MIL/MM3 Hemoglobin 11.9 GM/DL Hematocrit 35.9 % Mean Corpuscular Volume 82.5 FL Mean Corpuscular Hemoglobin 27.5 PG Mean Corpuscular Hemoglobin Concent 33.3 % Red Cell Distribution Width 14.7 % Platelet Count 265 TH/MM3 Mean Platelet Volume 9.2 FL Neutrophils (%) (Auto) 74.5 % Lymphocytes (%) (Auto) 20.7 % Monocytes (%) (Auto) 3.5 % Eosinophils (%) (Auto) 0.4 % Basophils (%) (Auto) 0.9 % Neutrophils # (Auto) 6.5 TH/MM3 Lymphocytes # (Auto) 1.8 TH/MM3 Monocytes # (Auto) 0.3 TH/MM3 Eosinophils # (Auto) 0.0 TH/MM3 Basophils # (Auto) 0.1 TH/MM3 CBC Comment DIFF FINAL Differential Comment Blood Urea Nitrogen 14 MG/DL Creatinine 0.93 MG/DL Random Glucose 181 MG/DL Total Protein 8.0 GM/DL Albumin 4.0 GM/DL Calcium Level 9.3 MG/DL Alkaline Phosphatase 47 U/L Aspartate Amino Transf (AST/SGOT) 16 U/L Alanine Aminotransferase (ALT/SGPT) 15 U/L Total Bilirubin 0.8 MG/DL Sodium Level 137 MEQ/L Potassium Level 3.5 MEQ/L Chloride Level 104 MEQ/L Carbon Dioxide Level 23.3 MEQ/L Anion Gap 10 MEQ/L Estimat Glomerular Filtration Rate 87 ML/MIN Lipase 109 U/L Clue Cells (Wet Prep) NONE SEEN Vaginal Trichomonas (Wet Prep) NONE SEEN Vaginal Yeast (Wet Prep) NONE SEEN Chlamydia trachomatis DNA (PCR) NOT DETECTED Neisseria gonorrhoeae DNA (PCR) NOT DETECTED Urine Color YELLOW Urine Turbidity CLEAR Urine pH 6.5 Urine Specific [place] 1.024 Urine Protein 30 mg/dL Urine Glucose (UA) TRACE mg/dL Urine Ketones 150 mg/dL Urine Occult Blood NEG Urine Nitrite NEG Urine Bilirubin NEG Urine Urobilinogen 2.0 MG/DL Urine Leukocyte Esterase NEG Urine RBC 3 /hpf Urine WBC 5 /hpf Urine Squamous Epithelial Cells <1 /hpf Urine Mucus FEW /lpf Microscopic Urinalysis Comment CULT NOT INDICATED MDM Medical Decision Making Medical Screen Exam Complete: Yes Emergency Medical Condition: Yes Medical Record Reviewed: Yes Differential Diagnosis Differential diagnosis includes endometriosis, UTI, ovarian cyst, ovarian torsion, uterine fibroid, atypical appendicitis, PID, cervicitis. Narrative Course IV was established, labs are drawn and sent, the patient was placed on cardiac telemetry monitoring and continuous pulse oximetry monitoring. I reviewed the patient's EMR, she had a CT the abdomen and pelvis with contrast on November which revealed no acute abnormality, small uterine fibroid, periportal edema involving the liver which can be seen and crystalloid administration. The patient also had an ultrasound completed with Doppler on November 25, 2016 which revealed 1.7 cm simple left ovarian cyst, 1.8 cm calcified fundal fibroid , but no acute abnormality. Normal blood flow was seen to both ovaries. The patient's pain is similar to the pain she had on November 25, does not appear to be ovarian torsion or appendicitis. The patient also had a gonorrhea and chlamydia that was negative at that time. The patient may have pain secondary to ovarian cyst. The patient was administered Dilaudid, Toradol, and IV fluids. She received Zofran by EMS prior to arrival. Pelvic exam was performed with a female nurse at bedside, minimal thick white discharge which can be normal versus yeast. Minimal bilateral adnexal tenderness, cervix is closed. The patient states she has been on control for 6 months, is calm and off of control currently on her placebos. She does have a history of painful menstrual cycles, this may be the beginning of endometriosis pain. UA test was negative. CBC is unremarkable. CMP is unremarkable. Diagnosis Primary Impression: Pelvic pain Patient Instructions: General Instructions, Narcotic given in the ED Additional Instructions: Medications as directed. Follow-up with your tribal council member. Return if symptoms worsen or progress. Med/Other Pt SpecificInfo: Prescription(s) given Disposition: 01 DISCHARGE HOME Condition: Stable Den Cabrera MD Dec 12, 2016 05:58
[2016-12-12] MEDS ORDERED: KETOROLAC TROMETHAMINE 30 MG/ML (IVP) VIAL IVP ONE (06:00)
[2016-12-12] MEDS ORDERED: FAMOTIDINE 20 MG/2 ML VIAL IV PUSH ONE (06:00)
[2016-12-12] MEDS ORDERED: HYDROmorphone HCL PF 1 MG/ML VIAL IVS ONE (06:00)
[2016-12-12] MEDS ORDERED: SODIUM CHLORIDE 0.9% FLUSH 10 ML FLUSH IV FLUSH PRN (06:00)
[2016-12-12 06:14] LABS: AUTOMATED NEUTROPHIL # 6.5 TH/MM3 (1.8-7.7); BASOPHIL # 0.1 TH/MM3 (0-0.2); BASOPHIL % 0.9 % (0.0-2.0); EOSINOPHIL % 0.4 % (0.0-4.0); HEMATOCRIT 35.9 % (35.0-46.0); HEMO FLAGS DIFF FINAL; LYMPH % 20.7 % (9.0-44.0); LYMPHOCYTE # 1.8 TH/MM3 (1.0-4.8); MEAN CELL VOLUME 82.5 FL (80.0-100.0); MEAN CORPUSCULAR HEMOGLOBIN 27.5 PG (27.0-34.0); MEAN CORPUSCULAR HGB CONC 33.3 % (32.0-36.0); MONO % 3.5 % (0.0-8.0); NEUT % 74.5 % (16.0-70.0); PLATELET COUNT 265 TH/MM3 (150-450); RED BLOOD COUNT 4.35 MIL/MM3 (4.00-5.30); RED CELL DISTRIBUTION WIDTH 14.7 % (11.6-17.2); WHITE BLOOD COUNT 8.8 TH/MM3 (4.0-11.0)
[2016-12-12 06:31] LABS: ANION GAP 10 MEQ/L (5-15); AST (GOT) 16 U/L (15-37); BICARBONATE 23.3 MEQ/L (21.0-32.0); BLOOD UREA NITROGEN 14 MG/DL (7-18); CHLORIDE 104 MEQ/L (98-107); GLOMERULAR FILTRATION RATE 87 ML/MIN (>89); POTASSIUM 3.5 MEQ/L (3.5-5.1); SODIUM (NA) 137 MEQ/L (136-145)
[2016-12-12] MEDS ORDERED: IBUP-232 PO (06:31)
[2016-12-12] MEDS ORDERED: NORC5TAB PO (06:31)
[2016-12-12 06:32] LABS: ALT (GPT) 15 U/L (10-53)
[2016-12-12 06:35] LABS: ALKALINE PHOSPHATASE 47 U/L (45-117); TOTAL BILIRUBIN ADULT 0.8 MG/DL (0.2-1.0)
[2016-12-12] MEDS ORDERED: MORPHINE SULFATE 4 MG/ML INJ IV PUSH ONE (09:00)
[2016-12-12 09:06] LABS: CHLAMYDIA PCR NOT DETECTED (NOT DETECT); NEISSERIA PCR NOT DETECTED (NOT DETECT)
[2016-12-12 09:23] LABS: BLOOD, URINE NEG (NEG); COMMENT (UR) CULT NOT INDICATED; CULTURE IF INDICATED CULT NOT INDICATED; GLUCOSE,URINE TRACE mg/dL (NEG); KETONE, URINE 150 mg/dL (NEG); MUCUS URINE FEW /lpf (OCC); NITRITE,URINE NEG (NEG); PH, URINE 6.5 (5.0-8.5); SQUAMOUS EPITHELIAL CELL URINE <1 /hpf (0-5); URINE COLOR YELLOW (YELLW/STRAW)
[2016-12-12] MEDS ORDERED: birth control PO (09:28)
--- NOTE | 2016-12-12 09:35 | PD ---
Physical Exam Date Seen by Provider: Dec 12, 2016 Time Seen by Provider: 09:32 Narrative 26-year-old female came to the emergency room with history of chronic pelvic pain. Patient was seen by the previous ER physician. Please refer to his history and physical regarding further details. Sign out was to follow-up on the blood test result and make a disposition decision. Patient was recently in the emergency room where extensive radiologic tests were done which were within normal limit. Currently all the lab work is back and they are negative. I went and saw the patient she continues to be in pain but she has been medicated for pain. I do not see anything critical that requires hospitalization at this point. I'll discharge her home. I discussed this with her. I've asked her to call her MANAGER OF [employer]O and make an appointment as soon as possible. She understands. Data Data Last Documented VS Vital Signs Date Time Temp Pulse Resp B/P (MAP) Pulse Ox O2 Delivery O2 Flow Rate FiO2 12/12/16 05:46 97.8 68 24 189/88 (121) 100 Orders Orders Complete Blood Count With Diff (12/12/16 05:58) Comprehensive Metabolic Panel (12/12/16 05:58) Lipase (12/12/16 05:58) Urinalysis - C+S If Indicated (12/12/16 05:58) Iv Access Insert/Monitor (12/12/16 05:58) Ecg Monitoring (12/12/16 05:58) Oximetry (12/12/16 05:58) Sodium Chlor 0.9% 1000 Ml Inj (Ns 1000 M (12/12/16 05:58) Sodium Chloride 0.9% Flush (Ns Flush) (12/12/16 06:00) Famotidine Inj (Pepcid Inj) (12/12/16 06:00) Ketorolac Inj (Toradol Inj) (12/12/16 06:00) Hydromorphone Pf Inj (Dilaudid Pf Inj) (12/12/16 06:00) Ed Urine Pregnancytest Poc (12/12/16 05:58) Gc And Chlamydia Pcr (12/12/16 06:03) Wet Prep Profile (12/12/16 06:03) Morphine Inj (Morphine Inj) (12/12/16 09:00) Labs Laboratory Tests Test 12/12/16 06:00 12/12/16 06:25 12/12/16 08:40 White Blood Count 8.8 TH/MM3 Red Blood Count 4.35 MIL/MM3 Hemoglobin 11.9 GM/DL Hematocrit 35.9 % Mean Corpuscular Volume 82.5 FL Mean Corpuscular Hemoglobin 27.5 PG Mean Corpuscular Hemoglobin Concent 33.3 % Red Cell Distribution Width 14.7 % Platelet Count 265 TH/MM3 Mean Platelet Volume 9.2 FL Neutrophils (%) (Auto) 74.5 % Lymphocytes (%) (Auto) 20.7 % Monocytes (%) (Auto) 3.5 % Eosinophils (%) (Auto) 0.4 % Basophils (%) (Auto) 0.9 % Neutrophils # (Auto) 6.5 TH/MM3 Lymphocytes # (Auto) 1.8 TH/MM3 Monocytes # (Auto) 0.3 TH/MM3 Eosinophils # (Auto) 0.0 TH/MM3 Basophils # (Auto) 0.1 TH/MM3 CBC Comment DIFF FINAL Differential Comment Blood Urea Nitrogen 14 MG/DL Creatinine 0.93 MG/DL Random Glucose 181 MG/DL Total Protein 8.0 GM/DL Albumin 4.0 GM/DL Calcium Level 9.3 MG/DL Alkaline Phosphatase 47 U/L Aspartate Amino Transf (AST/SGOT) 16 U/L Alanine Aminotransferase (ALT/SGPT) 15 U/L Total Bilirubin 0.8 MG/DL Sodium Level 137 MEQ/L Potassium Level 3.5 MEQ/L Chloride Level 104 MEQ/L Carbon Dioxide Level 23.3 MEQ/L Anion Gap 10 MEQ/L Estimat Glomerular Filtration Rate 87 ML/MIN Lipase 109 U/L Clue Cells (Wet Prep) NONE SEEN Vaginal Trichomonas (Wet Prep) NONE SEEN Vaginal Yeast (Wet Prep) NONE SEEN Chlamydia trachomatis DNA (PCR) NOT DETECTED Neisseria gonorrhoeae DNA (PCR) NOT DETECTED Urine Color YELLOW Urine Turbidity CLEAR Urine pH 6.5 Urine Specific [place] 1.024 Urine Protein 30 mg/dL Urine Glucose (UA) TRACE mg/dL Urine Ketones 150 mg/dL Urine Occult Blood NEG Urine Nitrite NEG Urine Bilirubin NEG Urine Urobilinogen 2.0 MG/DL Urine Leukocyte Esterase NEG Urine RBC 3 /hpf Urine WBC 5 /hpf Urine Squamous Epithelial Cells <1 /hpf Urine Mucus FEW /lpf Microscopic Urinalysis Comment CULT NOT INDICATED MDM Supervised Visit with TINO: No Diagnosis Primary Impression: Pelvic pain Additional Impression: Chronic pelvic pain in female Referrals: Primary Care Physician Patient Instructions: General Instructions, Narcotic given in the ED Additional Instruction: Medications as directed. Follow-up with your polysomnography technician. Return if symptoms worsen or progress. Please follow-up with your MANAGER OF [employer] as soon as possible. Med/Other Pt SpecificInfo: No Change to Meds Disposition: 01 DISCHARGE HOME Condition: Stable Nancy Faustin MD Dec 12, 2016 09:35
== END 2016-12-12 10:30 | disposition home or self-care (01) ==
LOC: NEPE 05:43
DX: R10.2 Pelvic and perineal pain (principal); R11.2 Nausea with vomiting, unspecified; D64.9 Anemia, unspecified; Z79.3 Long term (current) use of hormonal contraceptives
CPT/HCPCS: 80053; 81001; 83690; 84703; 85025; 87210; 87491; 87591; 96361; 96374; 96375; 99284; J1170; J1885; J2270; J7030

== ENCOUNTER 2017-02-02 16:37 | Emergency (ER) | payer OTHER, MEDICAID ==
[~2017-02-02] VITALS: Ht 172.7 cm; Wt 59.0 kg
[~2017-02-02 16:37] MED LIST changes: -PANT20 PO; +birth control PO
[2017-02-02 16:39] VITALS: BP 132/62; PULSE 87; RESP 12; TEMP 98.2; O2SAT 97
[2017-02-02] MEDS ORDERED: SODIUM CHLORIDE 0.9% FLUSH 10 ML FLUSH IVF PRN (17:00)
[2017-02-02 17:50] VITALS: BP 139/84; PULSE 87; RESP 17; TEMP 97.4; O2SAT 100
[2017-02-02 18:14] LABS: AUTOMATED NEUTROPHIL # 4.9 TH/MM3 (1.8-7.7); BASOPHIL % 0.5 % (0.0-2.0); EOSINOPHIL % 0.6 % (0.0-4.0); HEMATOCRIT 38.8 % (35.0-46.0); HEMO FLAGS DIFF FINAL; LYMPH % 24.8 % (9.0-44.0); LYMPHOCYTE # 1.8 TH/MM3 (1.0-4.8); MEAN CORPUSCULAR HEMOGLOBIN 27.7 PG (27.0-34.0); MEAN CORPUSCULAR HGB CONC 33.3 % (32.0-36.0); MONO % 5.6 % (0.0-8.0); NEUT % 68.5 % (16.0-70.0); PLATELET COUNT 270 TH/MM3 (150-450); RED BLOOD COUNT 4.68 MIL/MM3 (4.00-5.30); RED CELL DISTRIBUTION WIDTH 15.5 % (11.6-17.2); WHITE BLOOD COUNT 7.2 TH/MM3 (4.0-11.0)
[2017-02-02] MEDS ORDERED: SODIUM CHLOR 0.9% 1000 ML INJ 1,000 ML IV SCH (18:25)
[2017-02-02 18:27] LABS: INTERNATIONAL NORMALIZED RATIO 1.1 RATIO; PROTHROMBIN TIME - PATIENT 11.9 SEC (9.8-11.6)
[2017-02-02] MEDS ORDERED: MORPHINE SULFATE 4 MG/ML INJ IV PUSH ONE (18:30)
[2017-02-02] MEDS ORDERED: LIDOCAINE VISCOUS 2% SOLN 15 ML UDC PO ONE (18:30)
[2017-02-02] MEDS ORDERED: ONDANSETRON HCL 4 MG/2 ML VIAL IVP ONE (18:30)
[2017-02-02] MEDS ORDERED: ALUMINUM/MAGNESIUM/SIMETH 30 ML CUP PO ONE (18:30)
--- NOTE | 2017-02-02 18:37 | PD ---
HPI Chief Complaint: GI Complaint Time Seen by Provider: 18:21 Travel History International Travel<30 days: No Contact w/Intl Traveler<30days: No Traveled to known affect area: No History of Present Illness HPI 26-year-old female with reported history of peptic ulcer disease here for evaluation of abdominal pain, nausea, vomiting, and hematemesis. Symptoms started at around 2:00 PM today. History of section. No other abdominal surgeries. The patient reports that she had 3 episodes of vomiting with some blood mixed in her emesis. She took Zantac. She no longer feels nauseous. She continues to have mid abdominal pain which she describes as sharp /stabbing, moderate, constant, worse with movements. No fevers or chills. No urinary symptoms. States that she is on oral control. PFSH Past Medical History Anemia: Yes Diminished Hearing: No Reproductive: Yes (OVARIAN CYST) Ulcer: Yes Tetanus Vaccination: Unknown Influenza Vaccination: No ?: Not LMP: 02/01/17 : 2 Para: 2 Ovarian Cysts: Yes Past Surgical History Surgical History: No Previous Surgery Section: Yes (X1) Social History Alcohol Use: Yes (OCCASIONALLY) Tobacco Use: Yes Substance Use: No Allergies-Medications (Allergen,Severity, Reaction): Coded Allergies: No Known Allergies (Verified Adverse Reaction, Unknown, 02/02/17) Reported Meds & Prescriptions Reported Meds & Active Scripts Active Reported [ control] 1 Tab PO DAILY Review of Systems Except as stated in HPI: all other systems reviewed are Neg Physical Exam Narrative GENERAL: Well-developed, well-nourished, mild distress secondary to abdominal pain. SKIN: Focused skin assessment warm/dry. HEAD: Atraumatic. Normocephalic. EYES: Pupils equal and round. No scleral icterus. No injection or drainage. ENT: Mucous membranes pink and moist. NECK: Trachea midline. No JVD. CARDIOVASCULAR: Regular rate and rhythm. RESPIRATORY: No accessory muscle use. Clear to auscultation. Breath sounds equal bilaterally. GASTROINTESTINAL: Abdomen soft, nondistended. Mild periumbilical tenderness without peritoneal signs. Normal bowel sounds. No masses. No hernias. MUSCULOSKELETAL: No obvious deformities. No clubbing. No cyanosis. No edema. NEUROLOGICAL: Awake and alert. No obvious cranial nerve deficits. Motor grossly within normal limits. Normal speech. PSYCHIATRIC: Appropriate mood and affect; insight and judgment normal. Data Data Last Documented VS Vital Signs Date Time Temp Pulse Resp B/P (MAP) Pulse Ox O2 Delivery O2 Flow Rate FiO2 02/02/17 21:54 62 18 121/55 (77) 99 Room Air 02/02/17 17:50 97.4 Orders Orders Complete Blood Count With Diff (02/02/17 16:58) Comprehensive Metabolic Panel (02/02/17 16:58) Prothrombin Time / Inr (Pt) (02/02/17 16:58) Act Partial Throm Time (Ptt) (02/02/17 16:58) Urinalysis - C+S If Indicated (02/02/17 16:58) Type And Screen (02/02/17 16:58) Sodium Chloride 0.9% Flush (Ns Flush) (02/02/17 17:00) Beta Hcg (Quant/Titer) (02/02/17 18:25) Ct Abd/Pel W Iv Contrast(Rout) (02/02/17 18:25) Morphine Inj (Morphine Inj) (02/02/17 18:30) Ondansetron Inj (Zofran Inj) (02/02/17 18:30) Sodium Chlor 0.9% 1000 Ml Inj (Ns 1000 M (02/02/17 18:25) Al-Mag Hy-Si 40-40-4 Mg/Ml Liq (Mag-Al P (02/02/17 18:30) Lidocaine 2% Viscous (Xylocaine 2% Visco (02/02/17 18:30) Lipase (02/02/17 18:26) Iohexol 350 Inj (Omnipaque 350 Inj) (02/02/17 20:03) Metoclopramide Inj (Reglan Inj) (02/02/17 22:00) Labs Laboratory Tests Test 02/02/17 18:00 02/02/17 22:00 White Blood Count 7.2 TH/MM3 Red Blood Count 4.68 MIL/MM3 Hemoglobin 12.9 GM/DL Hematocrit 38.8 % Mean Corpuscular Volume 83.0 FL Mean Corpuscular Hemoglobin 27.7 PG Mean Corpuscular Hemoglobin Concent 33.3 % Red Cell Distribution Width 15.5 % Platelet Count 270 TH/MM3 Mean Platelet Volume 9.1 FL Neutrophils (%) (Auto) 68.5 % Lymphocytes (%) (Auto) 24.8 % Monocytes (%) (Auto) 5.6 % Eosinophils (%) (Auto) 0.6 % Basophils (%) (Auto) 0.5 % Neutrophils # (Auto) 4.9 TH/MM3 Lymphocytes # (Auto) 1.8 TH/MM3 Monocytes # (Auto) 0.4 TH/MM3 Eosinophils # (Auto) 0.0 TH/MM3 Basophils # (Auto) 0.0 TH/MM3 CBC Comment DIFF FINAL Differential Comment Prothrombin Time 11.9 SEC Prothromb Time International Ratio 1.1 RATIO Activated Partial Thromboplast Time 28.0 SEC Blood Urea Nitrogen 13 MG/DL Creatinine 0.96 MG/DL Random Glucose 73 MG/DL Total Protein 9.6 GM/DL Albumin 4.5 GM/DL Calcium Level 9.3 MG/DL Alkaline Phosphatase 58 U/L Aspartate Amino Transf (AST/SGOT) 23 U/L Alanine Aminotransferase (ALT/SGPT) 17 U/L Total Bilirubin 0.6 MG/DL Sodium Level 135 MEQ/L Potassium Level 3.8 MEQ/L Chloride Level 101 MEQ/L Carbon Dioxide Level 25.7 MEQ/L Anion Gap 8 MEQ/L Estimat Glomerular Filtration Rate 84 ML/MIN Lipase 170 U/L Human Chorionic Gonadotropin, Quant LESS THAN 1 MIU/ML Urine Color YELLOW Urine Turbidity CLEAR Urine pH 7.0 Urine Specific [place] GREATER THAN 1.050 Urine Protein 30 mg/dL Urine Glucose (UA) NEG mg/dL Urine Ketones 150 mg/dL Urine Occult Blood LARGE Urine Nitrite NEG Urine Bilirubin NEG Urine Urobilinogen LESS THAN 2.0 MG/DL Urine Leukocyte Esterase NEG Urine RBC 1 /hpf Urine WBC 1 /hpf Urine Squamous Epithelial Cells 9 /hpf Urine Mucus FEW /lpf Microscopic Urinalysis Comment CULT NOT INDICATED MDM Medical Decision Making Medical Screen Exam Complete: Yes Emergency Medical Condition: Yes Differential Diagnosis Gastritis, peptic ulcer disease, pancreatitis, hepatobiliary disease, [place]- Sebastian tears Narrative Course Vital signs are within normal limits. CBC is unremarkable. CMP is unremarkable. Lipase is 170. Beta hCG is negative. UA: 30 protein, 150 ketones, large occult blood, few mucus CT abdomen pelvis: CONCLUSION: 1. There appears to be a very small, shallow paraumbilical hernia which contains a loop of nondilated bowel. 2. Mild fluid distention of small bowel loops in the left upper abdominal quadrant is very nonspecific and may represent a hypodynamic ileus. Stool is identified throughout the colon. 3. Old degenerated uterine fibroid Patient was given a liter of IV fluids, IV morphine, GI cocktail, IV Zofran. While in the emergency department she began to complain of nausea again and was given a dose of Reglan IV. On reassessment the patient is sleeping comfortably. She ate lianne crackers while in the emergency department. She has a small umbilical hernia that is easily reducible. Her abdominal exam is benign. She states she feels better and would like to be discharged home. She likely has gastritis/peptic ulcer disease. Her vital signs have remained stable. I believe she is stable for discharge home with outpatient follow-up with a primary care physician/regional manager this week. Patient informed on when to return to the emergency department. She verbalizes understanding and agreement with plan. Diagnosis Primary Impression: Gastritis Qualified Codes: K29.01 - Acute gastritis with bleeding Additional Impression: Vomiting Qualified Codes: R11.2 - Nausea with vomiting, unspecified Referrals: Lyndsey Hightower MD 3 days Nurse [facility] Primary Care Physician 3 days Additional Instructions: Follow-up with a primary care physician this week. Return to the emergency department for worsening symptoms or any other concerns. Scripts Pantoprazole (Protonix) 40 Mg Tab 40 MG PO DAILY for Reflux, #30 TAB 0 Refills Prov: Phillip Lopez MD 02/02/17 Disposition: 01 DISCHARGE HOME Condition: Stable Phillip Lopez MD Feb 02, 2017 18:37
[2017-02-02 18:46] LABS: ANION GAP 8 MEQ/L (5-15); AST (GOT) 23 U/L (15-37); BICARBONATE 25.7 MEQ/L (21.0-32.0); BLOOD UREA NITROGEN 13 MG/DL (7-18); CHLORIDE 101 MEQ/L (98-107); GLOMERULAR FILTRATION RATE 84 ML/MIN (>89); POTASSIUM 3.8 MEQ/L (3.5-5.1); SODIUM (NA) 135 MEQ/L (136-145)
[2017-02-02 18:47] LABS: ALT (GPT) 17 U/L (10-53)
[2017-02-02 18:49] LABS: ALKALINE PHOSPHATASE 58 U/L (45-117); TOTAL BILIRUBIN ADULT 0.6 MG/DL (0.2-1.0)
[2017-02-02 19:15] LABS: BETA HCG QUANT LESS THAN 1 MIU/ML (0-5)
[2017-02-02 19:31] VITALS: BP 144/74; PULSE 81; RESP 17; O2SAT 100
[2017-02-02] MEDS ORDERED: IOHEXOL 350 MG/ML 10 ML VIAL (for RAD DIAG) IVCONTRAST ONE (20:03)
--- NOTE | 2017-02-02 21:46 | RADRPT ---
EXAM DATE/TIME: 02/02/2017 19:57 [facility] COMPARISON: CT ABDOMEN & PELVIS W CONTRAST, November 25, 2016, 23:10. INDICATIONS : Abdominal pain with hematemisis. IV CONTRAST: 80 cc Omnipaque 350 (iohexol) IV ORAL CONTRAST: No oral contrast ingested. RADIATION DOSE: 4.74 CTDIvol (mGy) MEDICAL HISTORY : Gastric ulcers SURGICAL HISTORY : None. ENCOUNTER: Initial ACUITY: 2 days PAIN SCALE: 8/10 LOCATION: epigastric TECHNIQUE: Volumetric scanning of the abdomen and pelvis was performed. Using automated exposure control and ad justment of the mA and/or kV according to patient size, radiation dose was kept as low as reasonably achievable to obtain optimal diagnostic quality images. DICOM format image data is available electro nically for review and comparison. FINDINGS: LOWER LUNGS: The visualized lower lungs are clear. LIVER: Homogeneous density without lesion. There is no dilation of the biliary tree. No calcified gallston es. SPLEEN: Normal size without lesion. PANCREAS: Within normal limits. KIDNEYS: Normal in size and shape. There is no mass, stone or hydronephrosis. ADRENAL GLANDS: Within normal limits. VASCULAR: There is no aortic aneurysm. BOWEL/MESENTERY: Mild distention of small bowel loops in left upper abdominal quadrant in a nonspecific pattern. There is stool identified throughout the colon. There does appear to be a very small paraumbilical hernia which contains a loop of nondilated bowel. ABDOMINAL WALL: Within normal limits. RETROPERITONEUM: There is no lymphadenopathy. BLADDER: No wall thickening or mass. REPRODUCTIVE: Uterine calcification characteristic of an old degenerated fibroid. INGUINAL: There is no lymphadenopathy or hernia. MUSCULOSKELETAL: Within normal limits for patient age. CONCLUSION: 1. There appears to be a very small, shallow paraumbilical hernia which contains a loop of nondilated bowel. 2. Mild fluid distention of small bowel loops in the left upper abdominal quadrant is very nonspecifi c and may represent a hypodynamic ileus. Stool is identified throughout the colon. 3. Old degenerated uterine fibroid Manuel Lara MD on February 02, 2017 at 21:39 Board Certified Radiologist. This report was verified electronically.
[2017-02-02 21:54] VITALS: BP 121/55; PULSE 62; RESP 18; O2SAT 99
[2017-02-02] MEDS ORDERED: METOCLOPRAMIDE HCL 10 MG/2 ML VIAL IV PUSH ONE (22:00)
[2017-02-02 23:01] LABS: BLOOD, URINE LARGE (NEG); COMMENT (UR) CULT NOT INDICATED; CULTURE IF INDICATED CULT NOT INDICATED; GLUCOSE,URINE NEG (NEG); KETONE, URINE 150 mg/dL (NEG); MUCUS URINE FEW /lpf (OCC); NITRITE,URINE NEG (NEG); SQUAMOUS EPITHELIAL CELL URINE 9 /hpf (0-5); URINE COLOR YELLOW (YELLW/STRAW)
[2017-02-02] MEDS ORDERED: PROT40TA PO (23:35)
== END 2017-02-03 00:08 | disposition home or self-care (01) ==
LOC: NEPD 16:37
DX: K29.01 Acute gastritis with bleeding (principal); K42.9 Umbilical hernia without obstruction or gangrene; D25.9 Leiomyoma of uterus, unspecified; D64.9 Anemia, unspecified; Z79.3 Long term (current) use of hormonal contraceptives; Z72.0 Tobacco use
CPT/HCPCS: 74177; 80053; 81001; 83690; 84702; 85025; 85610; 85730; 86850; 86900; 86901; 96361; 96374; 96375; 99285; J2270; J2405; J2765; J7030; Q9967

== ENCOUNTER 2017-04-08 19:29 | Emergency (ER) | payer MEDICAID, OTHER ==
[~2017-04-08 19:29] MED LIST changes: +PROT40TA PO
[2017-04-08 19:39] VITALS: BP 117/56; PULSE 70; RESP 22; TEMP 98.9; O2SAT 100
--- NOTE | 2017-04-08 21:37 | PD ---
HPI . Needs return to work note Chief Complaint: Medical Clearance Time Seen by Provider: 21:28 Travel History International Travel<30 days: No Contact w/Intl Traveler<30days: No Traveled to known affect area: No History of Present Illness HPI Patient presents stating that she has had the pinkeye. It has now cleared up but she needs a note stating that she can return to work. She states that she had itching and purulent discharge from her left eye a couple of days ago. It spontaneously resolved. PFSH Past Medical History Anemia: Yes Diminished Hearing: No Reproductive: Yes (OV[employer] CYST) Ulcer: Yes ?: Not LMP: on OCP, no period in close to a year. : 2 Para: 2 Ovarian Cysts: Yes Past Surgical History Section: Yes (X1) Social History Alcohol Use: Yes (OCCASIONALLY) Tobacco Use: Yes Substance Use: No Allergies-Medications (Allergen,Severity, Reaction): Coded Allergies: No Known Allergies (Verified Adverse Reaction, Unknown, 02/02/17) Reported Meds & Prescriptions Reported Meds & Active Scripts Active Protonix (Pantoprazole Sodium) 40 Mg Tab 40 Mg PO DAILY Reported [ control] 1 Tab PO DAILY Review of Systems Except as stated in HPI: all other systems reviewed are Neg Eyes: Positive: Drainage, Redness Physical Exam Narrative GENERAL: Awake and alert and in no acute distress. SKIN: Warm and dry. HEAD: Normocephalic/atraumatic. EYES: Pupils are equal. Extraocular movements are intact. There is no conjunctival injection or discharge. Delay NECK: Normal range of motion. Really RESPIRATORY: Nonlabored respirations. Totally MUSCULOSKELETAL: Atraumatic. NEUROLOGICAL: Nonfocal. PSYCHIATRIC: Appropriate mood and affect. Data Data Last Documented VS Vital Signs Date Time Temp Pulse Resp B/P (MAP) Pulse Ox O2 Delivery O2 Flow Rate FiO2 04/08/17 19:39 98.9 70 22 117/56 (76) 100 Orders Orders Ed Discharge Order (04/08/17 21:34) [facility] Medical Decision Making Medical Screen Exam Complete: Yes Emergency Medical Condition: Yes Differential Diagnosis Differential diagnosis includes but is not limited to chemical irritation, allergic conjunctivitis, viral conjunctivitis, bacterial conjunctivitis, chronic dry eyes. Narrative Course Patient presents complaining with conjunctivitis which has now cleared. She just needs a note to go back to work. She has been given a note to return to work. Diagnosis Primary Impression: Conjunctivitis Qualified Codes: H10.32 - Unspecified acute conjunctivitis, left eye Patient Instructions: General Instructions, Conjunctivitis (ED) Departure Forms: Work Release, Enter return to work date: Apr 09, 2017 Tests/Procedures Disposition: 01 DISCHARGE HOME Condition: Stable Dede Chase MD Apr 08, 2017 21:37
== END 2017-04-08 21:46 | disposition home or self-care (01) ==
LOC: NEPD 19:29
DX: H10.32 Unspecified acute conjunctivitis, left eye (principal); Z72.0 Tobacco use
CPT/HCPCS: 99281

== ENCOUNTER 2017-06-18 19:54 | Emergency (ER) | payer MEDICAID, OTHER ==
[~2017-06-18] VITALS: Ht 175.3 cm; Wt 60.0 kg
[2017-06-18 20:04] VITALS: BP 159/96; PULSE 68; RESP 16; TEMP 98.9; O2SAT 100
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
[2017-06-18] MEDS ORDERED: oxyCODONE/ACETAMINOPHEN 5 MG/325 MG TAB PO ONE (20:45)
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
== END 2017-06-18 23:14 ==
LOC: NEPD 19:54
DX: S02.2XXA Fracture of nasal bones, initial encounter for closed fracture (principal); Y04.0XXA Assault by unarmed brawl or fight, initial encounter
CPT/HCPCS: 70450; 70486; 84703; 99283